=== PATIENT | male | born 1970 | race Asian ===

== ENCOUNTER 2017-03-27 13:18 | Emergency (ER) | payer MEDICAID, OTHER ==
[~2017-03-27] VITALS: Ht 152.4 cm; Wt 61.2 kg
[2017-03-27 13:30] VITALS: BP 135/86
--- NOTE | 2017-03-27 13:52 | Emergency Room Report ---
History of Present Illness General Chief Complaint: Chest Pain Source: Medical Record Present Illness HPI 46YOM BIBEMS with neck pain then chest pain after eating [employer] for chest pain Patient non-verbal a baseline, developmental delayed. History of DM on metformin Xarelto listed as med on sheet but SW not sure if still taking/former CW didnt update meds EMS rhtym strip showed sinus tach - no ischemia Not given any ASA or meds Allergies: Coded Allergies: No Known Allergies (Unverified , 03/27/17) Patient History Past Medical History: DM, other - Hypothyroid, psych Past Surgical History: unable to obtain Pertinent Family History: unable to obtain Social History: Denies: smoking, alcohol use, drug use Immunizations: UTD Reviewed Nursing Documentation: PMH: Agreed, PSxH: Agreed Nursing Documentation-PMH Hx Diabetes: Yes Review of Systems All Other Systems: limited - Non verbal at baseline, developmental delayed Physical Exam Vital Signs Date Time Temp Pulse Resp B/P (MAP) Pulse Ox O2 Delivery O2 Flow Rate FiO2 03/27/17 13:24 97.5 92 16 140/99 98 Room Air Sp02 EP Interpretation: reviewed, normal General Appearance: normal inspection, well appearing, no apparent distress, alert, GCS 15, non-toxic, other - Well appearing, sitting upright in stretcher Head: atraumatic Eyes: bilateral eye PERRL, bilateral eye EOMI ENT: normal ENT inspection, hearing grossly normal, normal voice Neck: normal inspection, full range of motion, supple, no bony tend Respiratory: normal inspection, lungs clear, normal breath sounds, no respiratory distress, no retraction, no wheezing, other - TTP to upper chest and neck, chest symmetrical Cardiovascular #1: regular rate, rhythm, no edema Gastrointestinal: normal inspection, normal bowel sounds, non tender, soft, no guarding, no hernia Genitourinary: no CVA tenderness Musculoskeletal: normal inspection, back normal, normal range of motion, Chandu' s Sign negative Neurologic: normal inspection, alert, responsive, speech normal Psychiatric: normal inspection, judgement/insight normal, mood/affect normal Skin: normal inspection, normal color, no rash Medical Decision Making Diagnostic Impression: Primary Impression: Chest pain Additional Impression: Neck pain ER Course Chest pain and neck pain after eating lunch Palpable ttp to chest wall History of DM, ?xarelto use for unknown reason VS with tachycardia, improved to HR 76 after Tylenol, pepcid ECG is nonischemic 2x trop WNL Doubt ACS, PE given well appearance, stable vitals, normal trops x2, ECG Likely indigestion, stuck food bolus given transition from neck to chest pain at outset Now pain free No ttp to chest wall on serial exam DC home Close PMD followup EKG Diagnostic Results Rate: normal Rhythm: NSR ST Segments: no acute changes ASA given to the pt in ED: No Rhythm Strip Diag. Results EP Interpretation: yes Rate: 95 Rhythm: NSR, no PVC's, no ectopy Chest X-Ray Diagnostic Results Chest X-Ray Diagnostic Results : Chest X-Ray Ordered: Yes # of Views/Limited/Complete: 1 View Indication: Chest Pain EP Interpretation: Yes Interpretation: no consolidation, no effusion, no pneumothorax, no acute cardiopulmonary disease Impression: No acute disease Electronically Signed by: Dr Judah Adhikari MD Last Vital Signs Date Time Temp Pulse Resp B/P (MAP) Pulse Ox O2 Delivery O2 Flow Rate FiO2 03/27/17 13:24 97.5 92 16 140/99 98 Room Air Status: improved Disposition: HOME, SELF-CARE JUDAH ADHIKARI M.D. Mar 27, 2017 13:52
[2017-03-27] MEDS ORDERED: SEROQUEL25 MG ORAL (14:07)
[2017-03-27] MEDS ORDERED: LEVOTHYROXINE75 MCG ORAL (14:07)
[2017-03-27] MEDS ORDERED: METFORMIN HCL500 M5 PO (14:08)
[2017-03-27 14:16] LABS: BASOPHILS % (AUTO) 1.3 % (0.0-2.0); EOSINOPHILS % (AUTO) 3.6 % (0.0-3.0); LYMPHOCYTES % (AUTO) 35.7 % (20.0-45.0); MEAN CORPUSCULAR HEMOGLOBIN 31.3 PG (27.0-31.0); MEAN CORPUSCULAR HGB CONC 33.2 G/DL (32.0-36.0); MEAN CORPUSCULAR VOLUME 94 FL (80-99); MEAN PLATELET VOLUME 5.1 FL (6.5-10.1); MONOCYTES % (AUTO) 5.6 % (1.0-10.0); NEUTROPHILS % (AUTO) 53.8 % (45.0-75.0); PLATELET COUNT 187 K/UL (150-450); RED BLOOD COUNT 4.87 M/UL (4.70-6.10); RED CELL DISTRIBUTION WIDTH 11.4 % (11.6-14.8)
[2017-03-27 14:34] LABS: APPEARANCE,URINE CLEAR; KETONES,URINE NEGATIVE (NEGATIVE); LEUKOCYTE ESTERASE ,URINE NEGATIVE (NEGATIVE); NITRITE,URINE NEGATIVE (NEGATIVE); PH,URINE 5 (4.5-8.0); PROTEIN,URINE NEGATIVE (NEGATIVE); UROBILINOGEN,URINE NORMAL MG/DL (0.0-1.0)
[2017-03-27 15:02] LABS: ANION GAP 8 mmol/L (5-15); CALCIUM 9.7 MG/DL (8.5-10.1); CARBON DIOXIDE 28 MMOL/L (21-32); CHLORIDE 104 MMOL/L (98-107); CREATININE 0.9 MG/DL (0.55-1.30); GLOMERULAR FILTRATION RATE > 60 mL/min (>60); POTASSIUM 3.9 MMOL/L (3.5-5.1); SODIUM 140 MMOL/L (136-145)
--- NOTE | 2017-03-27 15:03 | Diagnostic Imaging Report ---
Indication: PAIN Technique: One view of the chest Comparison: none Findings: Lungs and pleural spaces are clear. Heart size is normal. The left hemidiaphragm is elevated Impression: No acute process
[2017-03-27 15:13] LABS: ALANINE AMINOTRANSFERASE 44 U/L (12-78); ALBUMIN/GLOBULIN RATIO 1.1 (1.0-2.7); ASPARTATE AMINO TRANSFERASE 29 U/L (15-37); TOTAL PROTEIN 8.2 G/DL (6.4-8.2)
[2017-03-27 16:30] VITALS: BP 128/87
[2017-03-27 17:13] VITALS: BP 128/87
--- NOTE | 2017-03-31 14:56 | Cardiology Report ---
APPROVED REPORT EKG Measurement Heart [id number] Normal sinus rhythm Normal ECG
== END 2017-03-27 17:42 | disposition home or self-care (01) ==
LOC: EDBD 13:18 → EDSEX 13:18 → EMR 15:50
DX: R07.9 Chest pain, unspecified (principal); E11.9 Type 2 diabetes mellitus without complications; M54.2 Cervicalgia; Z79.84 Long term (current) use of oral hypoglycemic drugs; E03.9 Hypothyroidism, unspecified
CPT/HCPCS: 36415; 71010; 80053; 81003; 83880; 84484; 85025; 93005; 96374; 99284; S0028

== ENCOUNTER 2019-06-07 10:25 | Inpatient (IN) | payer MEDICAID ==
[~2019-06-07] VITALS: Ht 160 cm; Wt 52.5 kg
--- NOTE | 2019-06-07 10:20 | NUR ---
ED Nurse Note: pt arrived with ra 29 d/t seizure and possible chest pain from [employer]. pt is nonverbal. shows NA Addendum: 06/07/19 at 1021 by PDELEUNIQUE ED Nurse Note: pt arrived with ra 29 d/t seizure and possible chest pain from [employer]. pt is nonverbal. shows NAD
[2019-06-07 10:21] VITALS: BP 120/73
--- NOTE | 2019-06-07 10:23 | NUR ---
ED Nurse Note: no witness KO, per ems pt was found shaking in bed. pt was pointing at chest at point of ems arrival.
[~2019-06-07 10:25] MED LIST: LEVOTHYROXINE75 MCG ORAL; METFORMIN HCL500 M5 PO; SEROQUEL25 MG ORAL
[2019-06-07] MEDS ORDERED: Mylanta II UD 30ml ORAL ONE (10:30)
--- NOTE | 2019-06-07 10:32 | NUR ---
ED Nurse Note: iv line established; patent and intact. pt blood specimen sent to lab
[2019-06-07 10:45] LABS: BASOPHILS % (AUTO) 0.8 % (0.0-2.0); EOSINOPHILS % (AUTO) 0.9 % (0.0-3.0); HEMATOCRIT 44.7 % (42.0-52.0); HEMOGLOBIN 15.7 G/DL (14.2-18.0); LYMPHOCYTES % (AUTO) 12.5 % (20.0-45.0); MEAN CORPUSCULAR VOLUME 92 FL (80-99); MONOCYTES % (AUTO) 5.5 % (1.0-10.0); NEUTROPHILS % (AUTO) 80.5 % (45.0-75.0); PLATELET COUNT 191 K/UL (150-450); RED BLOOD COUNT 4.88 M/UL (4.70-6.10); RED CELL DISTRIBUTION WIDTH 11.6 % (11.6-14.8); WHITE BLOOD COUNT 6.5 K/UL (4.8-10.8)
--- NOTE | 2019-06-07 10:50 | NUR ---
ED Nurse Note: Denita, care management coordinator at bedside.
[2019-06-07 11:01] LABS: ANION GAP 11 mmol/L (5-15); BLOOD UREA NITROGEN 24 mg/dL (7-18); CALCIUM 8.5 MG/DL (8.5-10.1); CARBON DIOXIDE 23 MMOL/L (21-32); CHLORIDE 103 MMOL/L (98-107); SODIUM 137 MMOL/L (136-145)
[2019-06-07 11:12] LABS: ALANINE AMINOTRANSFERASE 20 U/L (12-78); ALBUMIN 3.8 G/DL (3.4-5.0); ALBUMIN/GLOBULIN RATIO 0.9 (1.0-2.7); ALKALINE PHOSPHATASE 97 U/L (46-116); ASPARTATE AMINO TRANSFERASE 19 U/L (15-37); BILIRUBIN,TOTAL 0.5 MG/DL (0.2-1.0)
[2019-06-07 12:00] VITALS: BP 121/76
--- NOTE | 2019-06-07 12:31 | NUR ---
ED Nurse Note: recetable inserted per ermd order with CRN
--- NOTE | 2019-06-07 12:40 | NUR ---
ED Nurse Note: sister Essence at bedside
[2019-06-07] MEDS ORDERED: Omnipaque-300 100ml vial INJ PRN (13:00)
--- NOTE | 2019-06-07 13:12 | NUR ---
ED Nurse Note: Pt taken to CT
--- NOTE | 2019-06-07 13:21 | Diagnostic Imaging Report ---
Indication: Chest pain Technique: One view of the chest Comparison: 03/27/2017 Findings: Inspiration is suboptimal. There is questionable hazy parenchymal opacity an questionable slight perihilar interstitial congestion. The pleural spaces are clear. The heart is upper limits normal in size. The stomach is markedly distended with gas Impression: Marked gaseous distention of the stomach Hypoventilatory exam Mild interstitial congestion and hazy parenchymal opacity, may be an artifact of low lung volumes but could also indicate mild interstitial and airspace edema
--- NOTE | 2019-06-07 13:28 | NUR ---
ED Nurse Note: FAMILY MEMBER AT BEDSIDE.
--- NOTE | 2019-06-07 13:28 | NUR ---
ED Nurse Note: PT BACK FROM CT
--- NOTE | 2019-06-07 14:06 | Emergency Room Report ---
History of Present Illness General Chief Complaint: Chest Pain Source: Patient, Medical Record, EMS Present Illness HPI 48-year-old male presents with vague complaints of chest pain, abdominal pain, started a few hours prior to arrival, he is not able to verbalize what exactly is going on he has a history of developmental delay, unknown aggravating relieving factors unknown severity unknown radiation he points to his chest as well as his abdomen patient presents for evaluation Allergies: Coded Allergies: No Known Allergies (Unverified , 03/27/17) Patient History Past Medical History: see triage record Reviewed Nursing Documentation: PMH: Agreed; PSxH: Agreed Nursing Documentation-PMH Past Medical History: No History, Except For Hx Diabetes: Yes History Of Psychiatric Problem: Yes - mentally delayed Review of Systems All Other Systems: negative except mentioned in HPI Physical Exam Vital Signs Date Time Temp Pulse Resp B/P (MAP) Pulse Ox O2 Delivery O2 Flow Rate FiO2 06/07/19 10:13 98.2 126 18 120/73 (89) 100 Room Air Sp02 EP Interpretation: reviewed, normal General Appearance: well appearing, no apparent distress, alert Head: normocephalic, atraumatic Eyes: bilateral eye PERRL, bilateral eye EOMI ENT: uvula midline, dry mucus membranes Neck: supple, thyroid normal, supple/symm/no masses Respiratory: lungs clear, no respiratory distress, no retraction, no accessory muscle use Cardiovascular #1: normal peripheral pulses, no edema, no gallop, no murmur, tachycardia Gastrointestinal: distended, tenderness - diffuse tenderness Musculoskeletal: normal inspection Neurologic: alert, responsive Psychiatric: mood/affect normal Skin: no rash, warm/dry Procedures Critical Care Time Critical Care Time Given the critical condition in which the patient arrived, the patient was immediately assessed by myself and the nurse, and cardiac monitoring initiated due to the potential for rapid decompensation of the patient's clinical condition. During the course of the patient's stay, I spent a considerable amount of time at the bedside performing serial re-evaluations of the patient's hemodynamic and clinical status because of the recognized potential threat to life or limb in this condition. I then had a chance to review not only all of the available current laboratory and radiographic studies obtained today, but I also reviewed old records available to me at the time. Additionally, any ancillary information available including developer programmer analyst records were reviewed. Sequential vital signs were obtained. Critical Care time of 33 minutes was performed exclusive of billable procedures. Required resuscitation with 3 L, decompression with Sanches additionally patient coordination with general surgeon as well as inpatient DrLv Medical Decision Making Diagnostic Impression: Primary Impression: Chest pain Qualified Codes: R07.9 - Chest pain, unspecified Additional Impressions: SBO (small bowel obstruction) Inguinal hernia Qualified Codes: K40.30 - Unilateral inguinal hernia, with obstruction, without gangrene, not specified as recurrent ER Course 48-year-old male presents with vague complaints of chest pain, tachycardia, differential diagnosis includes abdominal pain, ACS, pneumonia, pneumothorax Chest x-ray negative, labs negative will admit patient for persistent tachycardia Patient also found to have an SBO on CT, Sanches placed, general surgery consulted We will admit patient to Dr. Kevin Velazco Laboratory Tests Test 06/07/19 10:30 White Blood Count 6.5 K/UL (4.8-10.8) Red Blood Count 4.88 M/UL (4.70-6.10) Hemoglobin 15.7 G/DL (14.2-18.0) Hematocrit 44.7 % (42.0-52.0) Mean Corpuscular Volume 92 FL (80-99) Mean Corpuscular Hemoglobin 32.2 PG (27.0-31.0) H Mean Corpuscular Hemoglobin Concent 35.1 G/DL (32.0-36.0) Red Cell Distribution Width 11.6 % (11.6-14.8) Platelet Count 191 K/UL (150-450) Mean Platelet Volume 4.9 FL (6.5-10.1) L Neutrophils (%) (Auto) 80.5 % (45.0-75.0) H Lymphocytes (%) (Auto) 12.5 % (20.0-45.0) L Monocytes (%) (Auto) 5.5 % (1.0-10.0) Eosinophils (%) (Auto) 0.9 % (0.0-3.0) Basophils (%) (Auto) 0.8 % (0.0-2.0) Sodium Level 137 MMOL/L (136-145) Potassium Level 4.0 MMOL/L (3.5-5.1) Chloride Level 103 MMOL/L (98-107) Carbon Dioxide Level 23 MMOL/L (21-32) Anion Gap 11 mmol/L (5-15) Blood Urea Nitrogen 24 mg/dL (7-18) H Creatinine 1.0 MG/DL (0.55-1.30) Estimate Glomerular Filtration Rate > 60 mL/min (>60) Glucose Level 211 MG/DL (74-106) H Calcium Level 8.5 MG/DL (8.5-10.1) Total Bilirubin 0.5 MG/DL (0.2-1.0) Aspartate Amino Transferase (AST) 19 U/L (15-37) Alanine Aminotransferase (ALT) 20 U/L (12-78) Alkaline Phosphatase 97 U/L (46-116) Troponin I 0.000 ng/mL (0.000-0.056) Pro-B-Type Natriuretic Peptide 96 pg/mL (0-125) Total Protein 8.0 G/DL (6.4-8.2) Albumin 3.8 G/DL (3.4-5.0) Globulin 4.2 g/dL Albumin/Globulin Ratio 0.9 (1.0-2.7) L Lipase 131 U/L (73-393) EKG Diagnostic Results EKG Time: 10:26 EP Interpretation: Sinus tachycardia, rate 123, QTc 440, no acute ST elevations , normal axis Rhythm Strip Diag. Results Rhythm Strip Time: 14:04 EP Interpretation: yes Rate: 114 Rhythm: other - Sinus Tachycardia Chest X-Ray Diagnostic Results Chest X-Ray Diagnostic Results : Chest X-Ray Ordered: Yes # of Views/Limited/Complete: 1 View EP Interpretation: Yes Interpretation: no consolidation, no effusion, no pneumothorax, no acute cardiopulmonary disease Impression: No acute disease Electronically Signed by: Jameel Hwang MD CT/MRI/US Diagnostic Results CT/MRI/US Diagnostic Results : Impression Procedure: CT Abdomen Pelvis w/Contrast Clinical Indication: Abdominal pain Technique: No oral contrast utilized, per emergency room physician request IV administration nonionic contrast. Venous phase spiral acquisition obtained through the abdomen and pelvis. Multiplanar reconstructions were generated. Total dose length product 752 mGycm. CTDIvol(s) 11 mGy. Dose reduction achieved using automated exposure control Comparison: None Findings: Lack of enteric contrast limits assessment of the GI tract. There is an indirect right inguinal hernia which contains a single loop of small bowel, probably distal ileum. Most of the small bowel is dilated and fluid-filled except for right lower quadrant ileum which is most likely small bowel distal to the hernia. No small bowel wall thickening or pneumatosis. The appendix is normal. There is no evidence of colonic diverticulosis or diverticulitis. There is a rectal tube in place. No free or loculated intraperitoneal gas or fluid is evident. Stomach is distended with ingested material and gas. The duodenum is grossly unremarkable. The gallbladder is nondistended. There, pancreas, spleen, adrenals, kidneys are unremarkable. No retroperitoneal or mesenteric mass or adenopathy. The bladder is markedly distended. No renal or ureteral calculi, hydronephrosis, or hydroureter. The included lung bases are somewhat obscured by motion artifact, grossly unremarkable. The bones are unremarkable. Impression: Indirect right inguinal hernia containing a loop of distal ileum, resulting in small bowel obstruction Rectal tube in place Distended bladder Critical value findings phoned to Dr. Waters in the emergency room at the time of interpretation The CT scanner at [facility] is accredited by the [employer] and the scans are performed using protocols designed to limit radiation exposure to as low as reasonably achievable to attain images of sufficient resolution adequate for diagnostic evaluation. Dictated By: Julius Hooks MD Electronically Signed By: Julius Hooks MD Signed Date/Time 06/07/19 1446 CC: Jameel Hwang MD Last Vital Signs Date Time Temp Pulse Resp B/P (MAP) Pulse Ox O2 Delivery O2 Flow Rate FiO2 06/07/19 10:21 98.2 126 18 120/73 100 Room Air Disposition: ADMITTED INPATIENT Condition: Serious Referrals: [facility],REFERRING (PCP) Jameel Hwang MD Jun 07, 2019 14:06
[2019-06-07 14:44] VITALS: BP 125/69
--- NOTE | 2019-06-07 14:51 | Diagnostic Imaging Report ---
Clinical Indication: Abdominal pain Technique: No oral contrast utilized, per emergency room physician request IV administration nonionic contrast. Venous phase spiral acquisition obtained through the abdomen and pelvis. Multiplanar reconstructions were generated. Total dose length product 752 mGycm. CTDIvol(s) 11 mGy. Dose reduction achieved using automated exposure control Comparison: None Findings: Lack of enteric contrast limits assessment of the GI tract. There is an indirect right inguinal hernia which contains a single loop of small bowel, probably distal ileum. Most of the small bowel is dilated and fluid-filled except for right lower quadrant ileum which is most likely small bowel distal to the hernia. No small bowel wall thickening or pneumatosis. The appendix is normal. There is no evidence of colonic diverticulosis or diverticulitis. There is a rectal tube in place. No free or loculated intraperitoneal gas or fluid is evident. Stomach is distended with ingested material and gas. The duodenum is grossly unremarkable. The gallbladder is nondistended. There, pancreas, spleen, adrenals, kidneys are unremarkable. No retroperitoneal or mesenteric mass or adenopathy. The bladder is markedly distended. No renal or ureteral calculi, hydronephrosis, or hydroureter. The included lung bases are somewhat obscured by motion artifact, grossly unremarkable. The bones are unremarkable. Impression: Indirect right inguinal hernia containing a loop of distal ileum, resulting in small bowel obstruction Rectal tube in place Distended bladder Critical value findings phoned to Dr. Waters in the emergency room at the time of interpretation The CT scanner at [facility] is accredited by the [employer] and the scans are performed using protocols designed to limit radiation exposure to as low as reasonably achievable to attain images of sufficient resolution adequate for diagnostic evaluation.
[2019-06-07 15:22] LABS: APPEARANCE,URINE CLEAR; BILIRUBIN, URINE NEGATIVE (NEGATIVE); COLOR,URINE PALE YELLOW; GLUCOSE, URINE (UA) NEGATIVE (NEGATIVE); KETONES,URINE NEGATIVE (NEGATIVE); LEUKOCYTE ESTERASE ,URINE NEGATIVE (NEGATIVE); NITRITE,URINE NEGATIVE (NEGATIVE); PH,URINE 5 (4.5-8.0); PROTEIN,URINE NEGATIVE (NEGATIVE); UROBILINOGEN,URINE NORMAL MG/DL (0.0-1.0)
--- NOTE | 2019-06-07 15:23 | NUR ---
ED Nurse Note: ENRIQUEZ CATH INSERTED PER ERMD ORDER; 900ML OUTPUT
--- NOTE | 2019-06-07 16:07 | NUR ---
ED Nurse Note: dr. braden at bedside
[2019-06-07 16:44] VITALS: BP 122/78
--- NOTE | 2019-06-07 16:50 | Consultation ---
History of Present Illness General Date patient seen: Jun 07, 2019 Reason for Hospitalization: Chest Pain Present Illness HPI 48-year-old male with multiple medical comorbidities and developmental delay who presents with abdominal pain which started a few hours prior to arrival. he is not able to verbalize what exactly is going on he has a history of developmental delay, unknown aggravating relieving factors unknown severity unknown radiation he points to his chest as well as his abdomen patient presents for evaluation. 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 States that noted abdominal distention this afternoon and he was complaining of discomfort. came in for evaluation. noted to have incarcerated right inguinal hernia that was reduced by ED physician. surgery called to evaluate. mother states known right inguinal hernia was planned for repair 4 years ago. unfortunately changes in insurance and was not able to follow through with repair. no n/v/f/c diarrhea otherwise well. urine retention with full bladder. ct noted Allergies: Coded Allergies: No Known Allergies (Unverified , 03/27/17) Medication History Scheduled Levothyroxine Sodium* (Levothyroxine Sodium*), 75 MCG ORAL DAILY, (Reported) Metformin HCl (Metformin HCl ER), 500 MG PO BID, (Reported) Quetiapine Fumarate* (Seroquel*), 25 MG ORAL TWICE A DAY, (Reported) Patient History Limited by: medical condition History Provided By: Patient, Family Member, Medical Record, PMD Healthcare decision maker Resuscitation status Advanced Directive on File Past Medical/Surgical History Past Medical/Surgical History: (1) Inguinal hernia (2) SBO (small bowel obstruction) (3) Chest pain Review of Systems Review of Symptoms General ROS: no weight loss or fever Psychological ROS: no depression or mood changes, no memory loss Ophthalmic ROS: no visual changes or eye irritation ENT ROS: no nasal congestion, hearing loss, dizziness Allergy and Immunology ROS: no allergic symptoms or urticaria Hematological and Lymphatic ROS: no swollen glands, unusual bleeding or bruising Endocrine ROS: no polyuria, polydipsia, weight changes, temperature intolerance Respiratory ROS: no cough, shortness of breath, or wheezing Cardiovascular ROS: no chest pain or dyspnea on exertion Gastrointestinal ROS: denies abdominal pain, bright red blood in stool. Musculoskeletal ROS: no myalgias or arthralgias Neurological ROS: no TIA or stroke symptoms Dermatological ROS: no new or changing skin lesions, rashes or pruritis limited given developmental delay Physical Exam Physical Exam General appearance: alert, cooperative, no distress, appears stated age Head: Normocephalic, without obvious abnormality, atraumatic Eyes: conjunctivae/corneas clear. PERRL, EOM's intact. Fundi benign Throat: Lips, mucosa, and tongue normal. Teeth and gums normal Neck: supple, symmetrical, trachea midline, no adenopathy, thyroid: not enlarged, symmetric, no tenderness/mass/nodules, no carotid bruit and no JVD Lungs: clear to auscultation bilaterally Heart: regular rate and rhythm, S1, S2 normal, no murmur, click, rub or gallop Abdomen: soft, non-tender. Bowel sounds decreased. distended. <1cm small umbilical hernia reducible. right inguinal hernia reduced Extremities: extremities normal, atraumatic, no cyanosis or edema Pulses: 2+ and symmetric Skin: Skin color, texture, turgor normal. No rashes or lesions Neurologic: Grossly normal Last 24 Hour Vital Signs Date Time Temp Pulse Resp B/P (MAP) Pulse Ox O2 Delivery O2 Flow Rate FiO2 06/07/19 14:44 98.4 112 20 125/69 98 Room Air 06/07/19 12:00 98.2 117 27 121/76 100 Room Air 06/07/19 10:21 98.2 126 18 120/73 100 Room Air 06/07/19 10:21 126 18 Room Air 06/07/19 10:13 98.2 126 18 120/73 (89) 100 Room Air Laboratory Tests Test 06/07/19 10:30 06/07/19 14:43 White Blood Count 6.5 K/UL (4.8-10.8) Red Blood Count 4.88 M/UL (4.70-6.10) Hemoglobin 15.7 G/DL (14.2-18.0) Hematocrit 44.7 % (42.0-52.0) Mean Corpuscular Volume 92 FL (80-99) Mean Corpuscular Hemoglobin 32.2 PG (27.0-31.0) H Mean Corpuscular Hemoglobin Concent 35.1 G/DL (32.0-36.0) Red Cell Distribution Width 11.6 % (11.6-14.8) Platelet Count 191 K/UL (150-450) Mean Platelet Volume 4.9 FL (6.5-10.1) L Neutrophils (%) (Auto) 80.5 % (45.0-75.0) H Lymphocytes (%) (Auto) 12.5 % (20.0-45.0) L Monocytes (%) (Auto) 5.5 % (1.0-10.0) Eosinophils (%) (Auto) 0.9 % (0.0-3.0) Basophils (%) (Auto) 0.8 % (0.0-2.0) Sodium Level 137 MMOL/L (136-145) Potassium Level 4.0 MMOL/L (3.5-5.1) Chloride Level 103 MMOL/L (98-107) Carbon Dioxide Level 23 MMOL/L (21-32) Anion Gap 11 mmol/L (5-15) Blood Urea Nitrogen 24 mg/dL (7-18) H Creatinine 1.0 MG/DL (0.55-1.30) Estimat Glomerular Filtration Rate > 60 mL/min (>60) Glucose Level 211 MG/DL (74-106) H Calcium Level 8.5 MG/DL (8.5-10.1) Total Bilirubin 0.5 MG/DL (0.2-1.0) Aspartate Amino Transf (AST/SGOT) 19 U/L (15-37) Alanine Aminotransferase (ALT/SGPT) 20 U/L (12-78) Alkaline Phosphatase 97 U/L (46-116) Troponin I 0.000 ng/mL (0.000-0.056) Pro-B-Type Natriuretic Peptide 96 pg/mL (0-125) Total Protein 8.0 G/DL (6.4-8.2) Albumin 3.8 G/DL (3.4-5.0) Globulin 4.2 g/dL Albumin/Globulin Ratio 0.9 (1.0-2.7) L Lipase 131 U/L (73-393) Urine Color Pale yellow Urine Appearance Clear Urine pH 5 (4.5-8.0) Urine Specific [place] 1.005 (1.005-1.035) Urine Protein Negative (NEGATIVE) Urine Glucose (UA) Negative (NEGATIVE) Urine Ketones Negative (NEGATIVE) Urine Blood Negative (NEGATIVE) Urine Nitrite Negative (NEGATIVE) Urine Bilirubin Negative (NEGATIVE) Urine Urobilinogen Normal MG/DL (0.0-1.0) Urine Leukocyte Esterase Negative (NEGATIVE) Height (Feet): 5 Height (Inches): 3.00 Weight (Pounds): 165 Medications Current Medications Medications (Trade) Dose Ordered Sig/[place] Route PRN Reason Start Time Stop Time Status Last Admin Dose Admin Iohexol (OMNIPAQUE-300 100ml) 100 ml NOW PRN INJ Radiology Procedure 06/07/19 13:00 06/09/19 13:00 Assessment/Plan Problem List: (1) Inguinal hernia ICD Codes: K40.90 - Unilateral inguinal hernia, without obstruction or gangrene , not specified as recurrent SNOMED: 461340668 Qualifiers: Qualified Codes: K40.30 - Unilateral inguinal hernia, with obstruction, without gangrene, not specified as recurrent (2) SBO (small bowel obstruction) Assessment & Plan: Findings: Lack of enteric contrast limits assessment of the GI tract. There is an indirect right inguinal hernia which contains a single loop of small bowel, probably distal ileum. Most of the small bowel is dilated and fluid-filled except for right lower quadrant ileum which is most likely small bowel distal to the hernia. No small bowel wall thickening or pneumatosis. The appendix is normal. There is no evidence of colonic diverticulosis or diverticulitis. There is a rectal tube in place. No free or loculated intraperitoneal gas or fluid is evident. Stomach is distended with ingested material and gas. The duodenum is grossly unremarkable. The gallbladder is nondistended. There, pancreas, spleen, adrenals, kidneys are unremarkable. No retroperitoneal or mesenteric mass or adenopathy. The bladder is markedly distended. No renal or ureteral calculi, hydronephrosis, or hydroureter. The included lung bases are somewhat obscured by motion artifact, grossly unremarkable. The bones are unremarkable. Impression: Indirect right inguinal hernia containing a loop of distal ileum, resulting in small bowel obstruction Rectal tube in place Distended bladder ICD Codes: K56.609 - Unspecified intestinal obstruction, unspecified as to partial versus complete obstruction SNOMED: 138202998 (3) Chest pain ICD Codes: R07.9 - Chest pain, unspecified SNOMED: 86730747 Qualifiers: Qualified Codes: R07.9 - Chest pain, unspecified (4) Incarcerated right inguinal hernia Assessment & Plan: 48 year old male with incarcerated right inguinal hernia. known history of RIH. plan for prior repair but did not. now incarcerated causing sbo. was reduced in ED by physician. no n/v/f/c diarrhea abd soft, distended, non tender, decreased bs labs noted imaging reviewed admit for observation npo iv fluids am KUB serial exams ? if bowel compromise as do not know how long incarcerated for and pt with developmental delay will need to monitor for bowel ischemia, perforation, recurrence will follow with recs thank you ICD Codes: K40.30 - Unilateral inguinal hernia, with obstruction, without gangrene, not specified as recurrent SNOMED: 867260894 Alan Freedman Jun 07, 2019 16:50
[2019-06-07] MEDS ORDERED: Morphine Sulfate 2mg/ml Inj(IV/IM USE ONLY) IVP PRN (17:00)
[2019-06-07] MEDS ORDERED: Mylanta II UD 30ml ORAL PRN (17:00)
[2019-06-07] MEDS ORDERED: DiphenhydrAMINE 25mg Tab ORAL PRN (17:00)
[2019-06-07] MEDS ORDERED: LORazepam Inj 2mg/ml 1ml IV PRN (17:00)
--- NOTE | 2019-06-07 17:04 | NUR ---
ED Nurse Note: TELEPHONE REPORT GIVEN TREVOR BYRNE FOR CONTINUITY OF CARE
[2019-06-07] MEDS ORDERED: PANTOPRAZOLE SO20 MG ORAL (17:24)
[2019-06-07] MEDS ORDERED: VITAMIN D32000 UNI3 PO (17:28)
[2019-06-07] MEDS ORDERED: SEROQUEL50 MG ORAL (17:28)
[2019-06-07] MEDS ORDERED: BISACODYL5 MG ORAL (17:28)
--- NOTE | 2019-06-07 17:28 | NUR ---
TRANSFER TO FLOOR: Patient transferred to TELE as ordered, per ERMD . Report given to TREVOR BYRNE Belongings and medications given tO JOAN,. Family and or S/O informed of transfer.
--- NOTE | 2019-06-07 17:35 | NUR ---
NURSE NOTES: Received patient from Cory Vogt. Patient being admitted from ED transported via [facility]. Patient is awake, nonverbal but able to follow very simple commands. Sister and urgent care physician at bedside. Abdomen noted to be distended with hyperactive bowel sounds. denies pain. Dr. Freedman seen in Ed. Patient on clear liquid diet. Flexi seal liquid brown stool will collect stool for CDIFF. Sanches catheter with clear yellow urine. Patient made comfortable. fall precautions in place. will follow. l
[2019-06-07] MEDS: D5 1/2NS w/KCl 20mEq 1,000 ML IV SCH (18:33)
[2019-06-07 20:00] VITALS: BP 128/71
--- NOTE | 2019-06-07 20:05 | NUR ---
HAND-OFF: Report given to Cory Araujo. Plan of care endorsed.
--- NOTE | 2019-06-07 20:12 | NUR ---
NURSE NOTES: Received report from TREVOR Gomez. Patient is awake lying semi-hays's; resting comfortably. No signs of acute distress noted; denies pain at this time. Sister at bedside. AOx1; able to verbalize needs to a degree. Checked IV site, lines, and IV rate; patent and running. No erythema, bleeding, or infiltration noted. Rectal tube in place. Sanches catheter draining well to gravity. Bed at lowest position, brakes on, siderails up x3. Call light within reach. Will continue to monitor.
[2019-06-07] MEDS: NovoLOG Insulin Flexpen SUBQ SCH (21:26)
[2019-06-07] MEDS: Heparin 5000 units/ml inj SUBQ SCH (21:26)
[2019-06-08] VITALS: BP 116/72
--- NOTE | 2019-06-08 03:41 | NUR ---
NURSE NOTES: Patient is awake lying semi-hays's; resting comfortably. No signs of acute distress noted; denies pain at this time. Sanches catheter draining well to gravity.
[2019-06-08 04:00] VITALS: BP 132/85
[2019-06-08] MEDS: NovoLOG Insulin Flexpen SUBQ SCH ×4 (06:49→21:34)
[2019-06-08 07:22] LABS: BASOPHILS % (AUTO) 1.4 % (0.0-2.0); EOSINOPHILS % (AUTO) 0.2 % (0.0-3.0); HEMOGLOBIN 14.3 G/DL (14.2-18.0); LYMPHOCYTES % (AUTO) 12.9 % (20.0-45.0); MEAN CORPUSCULAR VOLUME 90 FL (80-99); MONOCYTES % (AUTO) 8.7 % (1.0-10.0); NEUTROPHILS % (AUTO) 76.9 % (45.0-75.0); PLATELET COUNT 161 K/UL (150-450); RED BLOOD COUNT 4.32 M/UL (4.70-6.10); RED CELL DISTRIBUTION WIDTH 11.5 % (11.6-14.8); WHITE BLOOD COUNT 5.3 K/UL (4.8-10.8)
[2019-06-08 07:54] LABS: ALANINE AMINOTRANSFERASE 23 U/L (12-78); ALBUMIN 3.3 G/DL (3.4-5.0); ALBUMIN/GLOBULIN RATIO 0.9 (1.0-2.7); ALKALINE PHOSPHATASE 82 U/L (46-116); AMYLASE 81 U/L (25-115); ANION GAP 8 mmol/L (5-15); ASPARTATE AMINO TRANSFERASE 22 U/L (15-37); BILIRUBIN,TOTAL 0.5 MG/DL (0.2-1.0); BLOOD UREA NITROGEN 16 mg/dL (7-18); CALCIUM 7.7 MG/DL (8.5-10.1); CARBON DIOXIDE 24 MMOL/L (21-32); CHLORIDE 108 MMOL/L (98-107); CHOLESTEROL 99 MG/DL (< 200); HDL CHOLESTEROL 36 MG/DL (40-60); POTASSIUM 4.2 MMOL/L (3.5-5.1); SODIUM 140 MMOL/L (136-145); TRIGLYCERIDES 58 MG/DL (30-150)
[2019-06-08 08:00] VITALS: BP 105/70
--- NOTE | 2019-06-08 08:09 | NUR ---
NURSE NOTES: Received patient from Cory Thibodeaux. Patient is awake in bed nods and shakes head to questions. Following simple commands, able to move all extremities. Denies pain or discomfort at this time. Rectal tube and yin catheter in place. Flexiseal still draining liquidy stool will collect and send for CDIFF. IVF infusing through Left AC peripheral IV. SisterEssence is at her bedside. Will follow.
[2019-06-08] MEDS: D5 1/2NS w/KCl 20mEq 1,000 ML IV SCH ×2 (08:46→21:29)
[2019-06-08] MEDS: Heparin 5000 units/ml inj SUBQ SCH ×2 (08:49→21:34)
--- NOTE | 2019-06-08 09:05 | NUR ---
NURSE NOTES:WOUND CARE NOTES:Pt presented on admission with two small openings lower R buttocks .Both openings are in close proximity and has puncture-like appearance. NO erythema,induration or exudate noted. Sacrum and both ischium are blanchable. Both heels and malleoli are blanchable. No evidence of skin breakdown noted. Wound prevention initiated. Moisture Barrier Paste applied to buttocks . Sacral area covered with Optifoam drsg to minimize friction and or shearing. [place] Skin BArrier applied to both heels and each heel covered with Optifoam drsgs. Both heels off-loaded with pillow. PT positioned with pillow on his side. Tx.plan: Apply Moisture Barrier Paste to buttocks with each incontinence care. Cover sacrum with Optifoam drsg. Change every 3 days and prn. Reposition at least every 2hours or as tolerated. Off-load heels with pillow.
--- NOTE | 2019-06-08 09:25 | Diagnostic Imaging Report ---
Indication: Abdominal pain Technique: Supine view of the abdomen Comparison: Client Application Support Specialist image from CT scan 06/07/2019 Findings: Dilated gas-filled small bowel loops again demonstrated, degree of distention appearing slightly increased from the previous exam. Sanches catheter and rectal tube are again demonstrated. Impression: Slightly increased gaseous distention of small bowel, likely ongoing small bowel obstruction given findings described on prior CT scan.
--- NOTE | 2019-06-08 09:55 | NUR ---
PT EVALUATION NOTE Patient seen for initial evaluation. Patient presents with generalized weakness and impaired balance which affects patient's ability to perform mobility tasks safely. Patient requires min assist for bed mobility and transfers without assistive device. Patient able to ambulate 40 ft with min/mod assist, no assistive device. Patient unsteady during ambulation requiring assist to maintain balance. Patient will benefit from skilled inpatient PT intervention to address strength, balance and safety for improved level of independence with functional mobility. [facility] once medically cleared by MD. No DME needs recommended at this time. Addendum: 06/08/19 at 1311 by LOURDES COLON PT Amended: Links added.
--- NOTE | 2019-06-08 10:55 | General Progress Note ---
Assessment/Plan Problem List: (1) SBO (small bowel obstruction) ICD Codes: K56.609 - Unspecified intestinal obstruction, unspecified as to partial versus complete obstruction SNOMED: 387583605 (2) Incarcerated right inguinal hernia ICD Codes: K40.30 - Unilateral inguinal hernia, with obstruction, without gangrene, not specified as recurrent SNOMED: 149965283 (3) Chest pain ICD Codes: R07.9 - Chest pain, unspecified SNOMED: 16205638 Qualifiers: Qualified Codes: R07.9 - Chest pain, unspecified (4) Inguinal hernia ICD Codes: K40.90 - Unilateral inguinal hernia, without obstruction or gangrene , not specified as recurrent SNOMED: 374246486 Qualifiers: Qualified Codes: K40.30 - Unilateral inguinal hernia, with obstruction, without gangrene, not specified as recurrent Assessment/Plan: ngt to suction fu surg recs npo ivf pain control Subjective Allergies: Coded Allergies: No Known Allergies (Unverified , 03/27/17) Objective Last 24 Hour Vital Signs Date Time Temp Pulse Resp B/P (MAP) Pulse Ox O2 Delivery O2 Flow Rate FiO2 06/08/19 08:00 97.7 111 18 105/70 (82) 96 06/08/19 04:00 99.5 111 20 132/85 (101) 99 06/08/19 04:00 113 06/08/19 00:00 113 06/08/19 00:00 98.0 115 19 116/72 (87) 98 06/07/19 21:00 Room Air 06/07/19 20:00 119 06/07/19 20:00 97.9 117 18 128/71 (90) 97 06/07/19 19:15 100.8 06/07/19 17:45 116 06/07/19 17:30 Room Air 06/07/19 17:28 98.8 113 25 119/77 97 Room Air 06/07/19 16:44 98.9 114 24 122/78 99 Room Air 06/07/19 14:44 98.4 112 20 125/69 98 Room Air 06/07/19 12:00 98.2 117 27 121/76 100 Room Air Intake and Output 06/07/19 06/08/19 19:00 07:00 Intake Total 3034 ml 900 ml Output Total 2300 ml 650 ml Balance 734 ml 250 ml Intake IV Total 3034 ml 900 ml Output Urine Total 1800 ml 650 ml Stool Total 500 ml # Voids 2 # Bowel Movements 3 Laboratory Tests 06/07/19 14:43: Urine Color Pale yellow, Urine Appearance Clear, Urine pH 5, Urine Specific [place] 1.005, Urine Protein Negative, Urine Glucose (UA) Negative, Urine Ketones Negative, Urine Blood Negative, Urine Nitrite Negative, Urine Bilirubin Negative, Urine Urobilinogen Normal, Urine Leukocyte Esterase Negative 06/08/19 05:53: White Blood Count 5.3, Red Blood Count 4.32L, Hemoglobin 14.3, Hematocrit 39.0L , Mean Corpuscular Volume 90, Mean Corpuscular Hemoglobin 33.1H, Mean Corpuscular Hemoglobin Concent 36.6H, Red Cell Distribution Width 11.5L, Platelet Count 161, Mean Platelet Volume 4.4L, Neutrophils (%) (Auto) 76.9H, Lymphocytes (%) (Auto) 12.9L, Monocytes (%) (Auto) 8.7, Eosinophils (%) (Auto) 0.2, Basophils (%) (Auto) 1.4, Erythrocyte Sedimentation Rate 29H, Prothrombin Time 10.7, Prothromb Time International Ratio 1.0, Activated Partial Thromboplast Time 29, Sodium Level 140, Potassium Level 4.2, Chloride Level 108H , Carbon Dioxide Level 24, Anion Gap 8, Blood Urea Nitrogen 16, Creatinine 1.0, Estimat Glomerular Filtration Rate > 60, Glucose Level 165H, Hemoglobin A1c 6.6H , Lactic Acid Level 1.40, Calcium Level 7.7L, Total Bilirubin 0.5, Aspartate Amino Transf (AST/SGOT) 22, Alanine Aminotransferase (ALT/SGPT) 23, Alkaline Phosphatase 82, C-Reactive Protein, Quantitative 6.2H, Pro-B-Type Natriuretic Peptide 119, Total Protein 7.1, Albumin 3.3L, Globulin 3.8, Albumin/Globulin Ratio 0.9L, Triglycerides Level 58, Cholesterol Level 99, LDL Cholesterol 51, HDL Cholesterol 36L, Cholesterol/HDL Ratio 2.8L, Amylase Level 81, Thyroid Stimulating Hormone (TSH) 0.444 Height (Feet): 5 Height (Inches): 3.00 Weight (Pounds): 115 General Appearance: alert EENT: normal ENT inspection Neck: supple Cardiovascular: normal rate Respiratory/Chest: decreased breath sounds Abdomen: hypoactive bowel sounds, distended, tender Extremities: non-tender Kurt Krishnamurthy MD Jun 08, 2019 10:55
[2019-06-08 12:00] VITALS: BP_SYST 110; BP_SYST 119; BP_DIAS 69; BP_DIAS 81
--- NOTE | 2019-06-08 12:07 | NUR ---
CASE MANAGEMENT:REVIEW 48 YR OLD MALE BIBA FROM HOME CC: CHEST PAIN SI: CHEST PAIN. SBO. INGUINAL HERNIA 98.2 126 18 120/73 100% ON RA BUN+24 IS: 1L NS BOLUS X3 IV PEPCID CT ABD/PELVIS CXR : TO TELEMETRY INTERQUAL CRITERIA MET IS: NPO NG TUBE
--- NOTE | 2019-06-08 12:12 | Diagnostic Imaging Report ---
Indication: Post nasogastric tube placement Technique: Supine view of the upper abdomen Comparison: 4 hours earlier Findings: Interim placement of a nasogastric tube, tip coiled in the gastric fundus, in satisfactory position. There is suggestion of slightly decreased gaseous distention of small bowel since the prior exam Impression: Satisfactory nasogastric tube placement Slightly improved small bowel distention, over 4 hours
--- NOTE | 2019-06-08 13:41 | Cardiac Electrophysiology PN ---
Subjective Subjective [id number] Objective Last 24 Hour Vital Signs Date Time Temp Pulse Resp B/P (MAP) Pulse Ox O2 Delivery O2 Flow Rate FiO2 06/08/19 12:00 113 06/08/19 12:00 98.0 120 20 110/81 (91) 97 06/08/19 09:00 Room Air 06/08/19 08:00 97.7 111 18 105/70 (82) 96 06/08/19 08:00 110 06/08/19 04:00 99.5 111 20 132/85 (101) 99 06/08/19 04:00 113 06/08/19 00:00 113 06/08/19 00:00 98.0 115 19 116/72 (87) 98 06/07/19 21:00 Room Air 06/07/19 20:00 119 06/07/19 20:00 97.9 117 18 128/71 (90) 97 06/07/19 19:15 100.8 06/07/19 17:45 116 06/07/19 17:30 Room Air 06/07/19 17:28 98.8 113 25 119/77 97 Room Air 06/07/19 16:44 98.9 114 24 122/78 99 Room Air 06/07/19 14:44 98.4 112 20 125/69 98 Room Air Intake and Output 06/07/19 06/08/19 19:00 07:00 Intake Total 3034 ml 900 ml Output Total 2300 ml 650 ml Balance 734 ml 250 ml Intake IV Total 3034 ml 900 ml Output Urine Total 1800 ml 650 ml Stool Total 500 ml # Voids 2 # Bowel Movements 3 Laboratory Tests Test 06/07/19 14:43 06/08/19 05:53 Urine Color Pale yellow Urine Appearance Clear Urine pH 5 (4.5-8.0) Urine Specific [place] 1.005 (1.005-1.035) Urine Protein Negative (NEGATIVE) Urine Glucose (UA) Negative (NEGATIVE) Urine Ketones Negative (NEGATIVE) Urine Blood Negative (NEGATIVE) Urine Nitrite Negative (NEGATIVE) Urine Bilirubin Negative (NEGATIVE) Urine Urobilinogen Normal MG/DL (0.0-1.0) Urine Leukocyte Esterase Negative (NEGATIVE) White Blood Count 5.3 K/UL (4.8-10.8) Red Blood Count 4.32 M/UL (4.70-6.10) L Hemoglobin 14.3 G/DL (14.2-18.0) Hematocrit 39.0 % (42.0-52.0) L Mean Corpuscular Volume 90 FL (80-99) Mean Corpuscular Hemoglobin 33.1 PG (27.0-31.0) H Mean Corpuscular Hemoglobin Concent 36.6 G/DL (32.0-36.0) H Red Cell Distribution Width 11.5 % (11.6-14.8) L Platelet Count 161 K/UL (150-450) Mean Platelet Volume 4.4 FL (6.5-10.1) L Neutrophils (%) (Auto) 76.9 % (45.0-75.0) H Lymphocytes (%) (Auto) 12.9 % (20.0-45.0) L Monocytes (%) (Auto) 8.7 % (1.0-10.0) Eosinophils (%) (Auto) 0.2 % (0.0-3.0) Basophils (%) (Auto) 1.4 % (0.0-2.0) Erythrocyte Sedimentation Rate 29 MM/HR (0-15) H Prothrombin Time 10.7 SEC (9.30-11.50) Prothromb Time International Ratio 1.0 (0.9-1.1) Activated Partial Thromboplast Time 29 SEC (23-33) Sodium Level 140 MMOL/L (136-145) Potassium Level 4.2 MMOL/L (3.5-5.1) Chloride Level 108 MMOL/L (98-107) H Carbon Dioxide Level 24 MMOL/L (21-32) Anion Gap 8 mmol/L (5-15) Blood Urea Nitrogen 16 mg/dL (7-18) Creatinine 1.0 MG/DL (0.55-1.30) Estimat Glomerular Filtration Rate > 60 mL/min (>60) Glucose Level 165 MG/DL (74-106) H Hemoglobin A1c 6.6 % (4.3-6.0) H Lactic Acid Level 1.40 mmol/L (0.4-2.0) Calcium Level 7.7 MG/DL (8.5-10.1) L Total Bilirubin 0.5 MG/DL (0.2-1.0) Aspartate Amino Transf (AST/SGOT) 22 U/L (15-37) Alanine Aminotransferase (ALT/SGPT) 23 U/L (12-78) Alkaline Phosphatase 82 U/L (46-116) C-Reactive Protein, Quantitative 6.2 mg/dL (0.00-0.90) H Pro-B-Type Natriuretic Peptide 119 pg/mL (0-125) Total Protein 7.1 G/DL (6.4-8.2) Albumin 3.3 G/DL (3.4-5.0) L Globulin 3.8 g/dL Albumin/Globulin Ratio 0.9 (1.0-2.7) L Triglycerides Level 58 MG/DL (30-150) Cholesterol Level 99 MG/DL (< 200) LDL Cholesterol 51 mg/dL (<100) HDL Cholesterol 36 MG/DL (40-60) L Cholesterol/HDL Ratio 2.8 (3.3-4.4) L Amylase Level 81 U/L (25-115) Thyroid Stimulating Hormone (TSH) 0.444 uiU/mL (0.358-3.740) Microbiology Date/Time Source Procedure Growth Status 06/07/19 16:41 Rectum Received Carlos Alberto Blanchard MD Jun 08, 2019 13:41
--- NOTE | 2019-06-08 14:45 | Surgery Progress Note ---
Surgery Progress Note Subjective Additional Comments KUB noted mother at bedside seemingly comfortable no complaints non/v/f/c Objective Last 24 Hour Vital Signs Date Time Temp Pulse Resp B/P (MAP) Pulse Ox O2 Delivery O2 Flow Rate FiO2 06/08/19 12:00 113 06/08/19 12:00 98.0 120 20 110/81 (91) 97 06/08/19 09:00 Room Air 06/08/19 08:00 97.7 111 18 105/70 (82) 96 06/08/19 08:00 110 06/08/19 04:00 99.5 111 20 132/85 (101) 99 06/08/19 04:00 113 06/08/19 00:00 113 06/08/19 00:00 98.0 115 19 116/72 (87) 98 06/07/19 21:00 Room Air 06/07/19 20:00 119 06/07/19 20:00 97.9 117 18 128/71 (90) 97 06/07/19 19:15 100.8 06/07/19 17:45 116 06/07/19 17:30 Room Air 06/07/19 17:28 98.8 113 25 119/77 97 Room Air 06/07/19 16:44 98.9 114 24 122/78 99 Room Air I&O Intake and Output 06/07/19 06/08/19 19:00 07:00 Intake Total 3034 ml 900 ml Output Total 2300 ml 650 ml Balance 734 ml 250 ml Intake IV Total 3034 ml 900 ml Output Urine Total 1800 ml 650 ml Stool Total 500 ml # Voids 2 # Bowel Movements 3 Cardiovascular: RSR Respiratory: clear Abdomen: soft, distended, non-tender, decreased bowel sounds Extremities: no edema, no tenderness, no cyanosis Laboratory Tests Test 06/08/19 05:53 White Blood Count 5.3 K/UL (4.8-10.8) Red Blood Count 4.32 M/UL (4.70-6.10) L Hemoglobin 14.3 G/DL (14.2-18.0) Hematocrit 39.0 % (42.0-52.0) L Mean Corpuscular Volume 90 FL (80-99) Mean Corpuscular Hemoglobin 33.1 PG (27.0-31.0) H Mean Corpuscular Hemoglobin Concent 36.6 G/DL (32.0-36.0) H Red Cell Distribution Width 11.5 % (11.6-14.8) L Platelet Count 161 K/UL (150-450) Mean Platelet Volume 4.4 FL (6.5-10.1) L Neutrophils (%) (Auto) 76.9 % (45.0-75.0) H Lymphocytes (%) (Auto) 12.9 % (20.0-45.0) L Monocytes (%) (Auto) 8.7 % (1.0-10.0) Eosinophils (%) (Auto) 0.2 % (0.0-3.0) Basophils (%) (Auto) 1.4 % (0.0-2.0) Erythrocyte Sedimentation Rate 29 MM/HR (0-15) H Prothrombin Time 10.7 SEC (9.30-11.50) Prothromb Time International Ratio 1.0 (0.9-1.1) Activated Partial Thromboplast Time 29 SEC (23-33) Sodium Level 140 MMOL/L (136-145) Potassium Level 4.2 MMOL/L (3.5-5.1) Chloride Level 108 MMOL/L (98-107) H Carbon Dioxide Level 24 MMOL/L (21-32) Anion Gap 8 mmol/L (5-15) Blood Urea Nitrogen 16 mg/dL (7-18) Creatinine 1.0 MG/DL (0.55-1.30) Estimat Glomerular Filtration Rate > 60 mL/min (>60) Glucose Level 165 MG/DL (74-106) H Hemoglobin A1c 6.6 % (4.3-6.0) H Lactic Acid Level 1.40 mmol/L (0.4-2.0) Calcium Level 7.7 MG/DL (8.5-10.1) L Total Bilirubin 0.5 MG/DL (0.2-1.0) Aspartate Amino Transf (AST/SGOT) 22 U/L (15-37) Alanine Aminotransferase (ALT/SGPT) 23 U/L (12-78) Alkaline Phosphatase 82 U/L (46-116) C-Reactive Protein, Quantitative 6.2 mg/dL (0.00-0.90) H Pro-B-Type Natriuretic Peptide 119 pg/mL (0-125) Total Protein 7.1 G/DL (6.4-8.2) Albumin 3.3 G/DL (3.4-5.0) L Globulin 3.8 g/dL Albumin/Globulin Ratio 0.9 (1.0-2.7) L Triglycerides Level 58 MG/DL (30-150) Cholesterol Level 99 MG/DL (< 200) LDL Cholesterol 51 mg/dL (<100) HDL Cholesterol 36 MG/DL (40-60) L Cholesterol/HDL Ratio 2.8 (3.3-4.4) L Amylase Level 81 U/L (25-115) Thyroid Stimulating Hormone (TSH) 0.444 uiU/mL (0.358-3.740) Plan Problems: (1) Inguinal hernia (2) SBO (small bowel obstruction) Assessment & Plan: Findings: Lack of enteric contrast limits assessment of the GI tract. There is an indirect right inguinal hernia which contains a single loop of small bowel, probably distal ileum. Most of the small bowel is dilated and fluid-filled except for right lower quadrant ileum which is most likely small bowel distal to the hernia. No small bowel wall thickening or pneumatosis. The appendix is normal. There is no evidence of colonic diverticulosis or diverticulitis. There is a rectal tube in place. No free or loculated intraperitoneal gas or fluid is evident. Stomach is distended with ingested material and gas. The duodenum is grossly unremarkable. The gallbladder is nondistended. There, pancreas, spleen, adrenals, kidneys are unremarkable. No retroperitoneal or mesenteric mass or adenopathy. The bladder is markedly distended. No renal or ureteral calculi, hydronephrosis, or hydroureter. The included lung bases are somewhat obscured by motion artifact, grossly unremarkable. The bones are unremarkable. Impression: Indirect right inguinal hernia containing a loop of distal ileum, resulting in small bowel obstruction Rectal tube in place Distended bladder (3) Chest pain (4) Incarcerated right inguinal hernia Assessment & Plan: 48 year old male with incarcerated right inguinal hernia. known history of RIH. plan for prior repair but did not. now incarcerated causing sbo. was reduced in ED by physician. no n/v/f/c diarrhea abd soft, distended, non tender, decreased bs labs noted imaging reviewed npo iv fluids am KUB serial exams ? if bowel compromise as do not know how long incarcerated for and pt with developmental delay will need to monitor for bowel ischemia, perforation, recurrence KUB noted from this AM Small bowel series ordered pending results NG tube placed for decompression and contrast administration will follow with recs thank you Alan Freedman Jun 08, 2019 14:45
--- NOTE | 2019-06-08 15:15 | History and Physical Report ---
DATE OF ADMISSION: 06/07/2019 DATE AND TIME SEEN: 06/08/2019 at 9 a.m. CONSULTANTS: 1. Alan Freedman M.D. 2. Kurt Krishnamurthy M.D. 3. Zacarias Santamaria M.D. CHIEF COMPLAINT: Abdominal pain, diagnosed small bowel obstruction and right inguinal hernia. BRIEF HISTORY: This is a 48-year-old male, who has history of down syndrome, lives at snf, presents to [facility] with abdominal pain and is diagnosed with small bowel obstruction and possibly caused by right inguinal hernia. Hernia was reduced. The patient was admitted to telemetry for further care. Currently, calm, in bed, no complaint. REVIEW OF SYSTEMS: Slightly confused. Sister is at bedside. PAST MEDICAL HISTORY: Diabetes and down syndrome. PAST SURGICAL HISTORY: None. ALLERGIES: Denies. MEDICATIONS: Include , heparin, Tylenol, morphine, Zofran, and lorazepam. SOCIAL HISTORY: No smoking. No alcohol. No intravenous drug abuse. FAMILY HISTORY: Noncontributory. PHYSICAL EXAMINATION: GENERAL: Calm in bed, oriented x1, in no acute distress. VITAL SIGNS: Show temperature is 97 degrees, pulse 111, respirations 18, and blood pressure 105/70. CARDIOVASCULAR: No murmur. LUNGS: Clear and distant. ABDOMEN: Bowel sounds positive. Distant, soft. No guarding. No rigidity. No rebound. EXTREMITIES: Show no cyanosis, clubbing, or edema. NEUROLOGIC: The patient is moving all extremities, slightly weak. LABORATORY AND DIAGNOSTIC DATA: Labs at this time show CBC is normal. BMP shows chloride 108, glucose 165. Albumin 3.3. INR is 1.0. Urinalysis is negative. ASSESSMENT: 1. Small bowel obstruction. 2. Right inguinal hernia. 3. Down syndrome. 4. Tachycardia. 5. Malnutrition. 6. Diabetes. PLAN: 1. Blood pressure, blood sugar, and pain control. 2. Dietary followup. 3. NPO, IV fluids. 4. GI and Surgery followup. 5. We will add Dr. Blanchard, Cardiology. Kevin Velazco D.O. DR: DANITA JOB#: [id number] CC:
--- NOTE | 2019-06-08 18:00 | NUR ---
NURSE NOTES: Patient returned from radiology after abd xray. NGT out per sister patient had pulled it while at radiology. NGT inserted back to right nare #12 wolof. awaiting KUB confirmation. will follow.
[2019-06-08 18:19] VITALS: BP 112/82
--- NOTE | 2019-06-08 18:33 | Diagnostic Imaging Report ---
Indication: Post nasogastric tube placement Technique: Supine view of the abdomen Comparison: Small bowel study performed immediately prior Findings: Interim forward transit of contrast, now seen throughout the entirety of the colon. Rectal tube is in place. There is overall decreased caliber of the small bowel. Nasogastric tube was apparently removed over the course of the previous study, has been replaced and is in good position, coiled in the gastric fundus. Impression: Satisfactory nasogastric intubation Interim forward progression of previously ingested contrast for small bowel study This agrees with the preliminary interpretation provided overnight by [facility].
--- NOTE | 2019-06-08 19:26 | NUR ---
NURSE NOTES: Received report from TREVOR Gomez. Patient is awake lying semi-hays's; resting comfortably. No signs of acute distress noted; denies pain at this time. Sister at bedside. AOx1; able to verbalize needs to a degree. Checked IV site, lines, and IV rate; patent and running. No erythema, bleeding, or infiltration noted. Rectal tube in place. Sanches catheter draining well to gravity. NG tube in place on low intermittent suction. Bed at lowest position, brakes on, siderails up x3. Call light within reach. Will continue to monitor.
--- NOTE | 2019-06-08 19:47 | NUR ---
HAND-OFF: Report given to Cory Thibodeaux. Plan of care endorsed.
[2019-06-08 20:00] VITALS: BP 133/86
--- NOTE | 2019-06-08 23:15 | Consultation ---
DATE OF CONSULTATION: 06/08/2019 CARDIOLOGY CONSULTATION CONSULTING PHYSICIAN: Carlos Alberto Blanchard M.D. REFERRING PHYSICIAN: Kevin Velazco D.O. REASON FOR CONSULTATION: Chest pain and tachycardia. HISTORY OF PRESENT ILLNESS: The patient is a 48-year-old gentleman with history of diabetes who was brought to the emergency room for chest pain and abdominal pain a few hours hours prior to the arrival. The patient is not able to verbalize exactly what happened and has a history of developmental delay. The patient has a conservator. He points to his chest and to his abdomen. The patient was brought to the emergency room for further evaluation. The patient was tachycardic with heart rate of 120s and a cardiology consultation was requested for further evaluation. It is of note that on the CT of the abdomen, the patient was found to have small bowel obstruction, and a Sanches was placed. FAMILY HISTORY: Noncontributory. SOCIAL HISTORY: Does not smoke or drink alcohol. PHYSICAL EXAMINATION: VITAL SIGNS: Show blood pressure of 120/70, pulse 120, respirations 18, and temperature 98.2. HEAD AND NECK: Showed no JVD. LUNGS: Clear. CARDIOVASCULAR: Tachycardic. S1 and S2 with no gallop. ABDOMEN: Soft . EXTREMITIES: No pitting edema. LABORATORY AND DIAGNOSTIC DATA: His labs show white count of 6.5, hemoglobin of 15.7, hematocrit of 44, and platelet count of 191,000. Sodium 137, potassium 4.0, BUN of 24, and creatinine 1.0. Troponin is negative. BNP is 96. ASSESSMENT AND PLAN: 1. Chest pain, likely due to epigastric pain due to the small bowel obstruction. Troponin is negative. EKG does not show any acute ischemic changes. 2. Tachycardia. This is sinus tachycardia with no evidence of atrial fibrillation. 3. Small bowel obstruction. Further evaluation by Dr. Freedman and Dr. Krishnamurthy. 4. inguinal hernia. Thank you very much for allowing me to participate in the care of this patient. Please do not hesitate to contact me for any questions regarding my evaluation. Carlos Alberto Blanchard M.D. DR: TAMMY JOB#: [id number] CC:
[2019-06-09] VITALS: BP 135/84
[2019-06-09 04:00] VITALS: BP 131/82
[2019-06-09] MEDS: NovoLOG Insulin Flexpen SUBQ SCH ×4 (06:03→21:33)
--- NOTE | 2019-06-09 06:46 | Diagnostic Imaging Report ---
Indication: Post nasogastric tube placement, history of suspected small bowel obstruction Technique: Supine view of the abdomen Comparison: 06/08/2019 Findings: Again demonstrated is a nasogastric tube, coiled in the gastric fundus in good position. There is evidence of interim evacuation of much of the previously present bowel contrast. A few mildly dilated small bowel loops are seen in the midabdomen bilaterally. Impression: Satisfactory nasogastric tube position Interim evacuation of much of the previously ingested contrast Mildly dilated left mid abdominal small bowel loops, dilatation presumably functional in nature given absence of obstructive pathology on recent small bowel study
[2019-06-09 06:53] LABS: BASOPHILS % (AUTO) 0.9 % (0.0-2.0); HEMOGLOBIN 12.8 G/DL (14.2-18.0); LYMPHOCYTES % (AUTO) 23.5 % (20.0-45.0); MEAN CORPUSCULAR VOLUME 92 FL (80-99); NEUTROPHILS % (AUTO) 65.6 % (45.0-75.0); PLATELET COUNT 148 K/UL (150-450); RED BLOOD COUNT 3.93 M/UL (4.70-6.10); RED CELL DISTRIBUTION WIDTH 11.6 % (11.6-14.8); WHITE BLOOD COUNT 5.3 K/UL (4.8-10.8)
[2019-06-09 07:12] LABS: ANION GAP 10 mmol/L (5-15); BLOOD UREA NITROGEN 17 mg/dL (7-18); CALCIUM 7.8 MG/DL (8.5-10.1); CARBON DIOXIDE 24 MMOL/L (21-32); CHLORIDE 112 MMOL/L (98-107); POTASSIUM 3.7 MMOL/L (3.5-5.1); SODIUM 146 MMOL/L (136-145)
--- NOTE | 2019-06-09 07:25 | NUR ---
HAND-OFF: Report given to TREVOR Mcclain. Patient is awake lying semi-hays's; resting comfortably. NG tube reinserted. Endorsed to oncoming shift RN regarding abdominal x-ray results; verbalized understanding.
[2019-06-09 08:00] VITALS: BP 112/74
--- NOTE | 2019-06-09 08:52 | NUR ---
CASE MANAGEMENT:REVIEW 06/09/19 SI: INCARCERATED RT INGUINAL HERNIA W/SBO 98.1 76 22 112/74 96% ON RA PLT-148 CA-7.8 IS: IV PEPCID Q12 SS INSULIN HEPARIN SQ Q12 IVF@75/HR : TELEMETRY STATUS DCP: FROM HOME PLAN: NGT TO LOW INTERMITTENT SUCTION
[2019-06-09] MEDS: D5 1/2NS w/KCl 20mEq 1,000 ML IV SCH ×2 (09:43→23:28)
[2019-06-09] MEDS: Heparin 5000 units/ml inj SUBQ SCH ×2 (09:45→21:00)
--- NOTE | 2019-06-09 11:19 | GI Progress Note ---
Assessment/Plan Problems: (1) Ileus ICD Codes: K56.7 - Ileus, unspecified SNOMED: 298385677 (2) Inguinal hernia ICD Codes: K40.90 - Unilateral inguinal hernia, without obstruction or gangrene , not specified as recurrent SNOMED: 095281369 Qualifiers: Qualified Codes: K40.30 - Unilateral inguinal hernia, with obstruction, without gangrene, not specified as recurrent (3) Chest pain ICD Codes: R07.9 - Chest pain, unspecified SNOMED: 51461362 Qualifiers: Qualified Codes: R07.9 - Chest pain, unspecified (4) Incarcerated right inguinal hernia ICD Codes: K40.30 - Unilateral inguinal hernia, with obstruction, without gangrene, not specified as recurrent SNOMED: 132952457 (5) SBO (small bowel obstruction) ICD Codes: K56.609 - Unspecified intestinal obstruction, unspecified as to partial versus complete obstruction SNOMED: 536586306 Status: progressing Status Narrative Discussed with Dr. Krishnamurthy Assessment/Plan Small bowel follow-through taken, pending final read KUB reviewed, functional in nature without any obvious obstruction NGT Rectal tube present Await for ileus to resolve Encourage ambulation plus turn every 2 hours Maintain n.p.o. plus IV fluids serial imaging prn Follow surgical recommendations Pain control The patient was seen and examined at bedside and all new and available data was reviewed in the patients chart. I agree with the above findings, impression and plan. (Patient seen earlier today. Signature stamp does not reflect patient encounter time.). - Kurt Krishnamurthy MD Subjective Subjective Limited Denies any abdominal pain Abdominal distention improved Objective Last 24 Hour Vital Signs Date Time Temp Pulse Resp B/P (MAP) Pulse Ox O2 Delivery O2 Flow Rate FiO2 06/09/19 10:59 Room Air 06/09/19 08:00 98.1 76 22 112/74 (87) 96 06/09/19 04:00 89 06/09/19 04:00 98.2 98 17 131/82 (98) 96 06/09/19 00:00 95 06/09/19 00:00 98.5 100 19 135/84 (101) 96 06/08/19 21:00 Room Air 06/08/19 20:00 98.3 102 18 133/86 (102) 96 06/08/19 20:00 102 1/29/20 18:19 99.3 108 18 112/82 (92) 95 06/08/19 12:00 113 06/08/19 12:00 98.0 120 20 110/81 (91) 97 Intake and Output 06/08/19 06/09/19 18:59 06:59 Intake Total 75 ml 864 ml Output Total 300 ml 1600 ml Balance -225 ml -736 ml Intake IV Total 75 ml 864 ml Output Urine Total 700 ml Stool Total 300 ml 900 ml # Voids 1 1 # Bowel Movements 2 2 Laboratory Tests Test 06/09/19 06:17 White Blood Count 5.3 K/UL (4.8-10.8) Red Blood Count 3.93 M/UL (4.70-6.10) L Hemoglobin 12.8 G/DL (14.2-18.0) L Hematocrit 36.0 % (42.0-52.0) L Mean Corpuscular Volume 92 FL (80-99) Mean Corpuscular Hemoglobin 32.6 PG (27.0-31.0) H Mean Corpuscular Hemoglobin Concent 35.6 G/DL (32.0-36.0) Red Cell Distribution Width 11.6 % (11.6-14.8) Platelet Count 148 K/UL (150-450) L Mean Platelet Volume 4.5 FL (6.5-10.1) L Neutrophils (%) (Auto) 65.6 % (45.0-75.0) Lymphocytes (%) (Auto) 23.5 % (20.0-45.0) Monocytes (%) (Auto) 10.0 % (1.0-10.0) Eosinophils (%) (Auto) 0.0 % (0.0-3.0) Basophils (%) (Auto) 0.9 % (0.0-2.0) Sodium Level 146 MMOL/L (136-145) H Potassium Level 3.7 MMOL/L (3.5-5.1) Chloride Level 112 MMOL/L (98-107) H Carbon Dioxide Level 24 MMOL/L (21-32) Anion Gap 10 mmol/L (5-15) Blood Urea Nitrogen 17 mg/dL (7-18) Creatinine 1.0 MG/DL (0.55-1.30) Estimat Glomerular Filtration Rate > 60 mL/min (>60) Glucose Level 165 MG/DL (74-106) H Calcium Level 7.8 MG/DL (8.5-10.1) L Troponin I 0.010 ng/mL (0.000-0.056) Height (Feet): 5 Height (Inches): 3.00 Weight (Pounds): 115 General Appearance: WD/WN, no apparent distress, alert Cardiovascular: normal rate Respiratory/Chest: normal breath sounds, no respiratory distress Abdominal Exam: normal bowel sounds, non tender, soft Extremities: normal range of motion, non-tender Garry Caballero NP Jun 09, 2019 11:19
[2019-06-09 12:00] VITALS: BP 125/69
--- NOTE | 2019-06-09 12:02 | Surgery Progress Note ---
Surgery Progress Note Subjective Symptoms: improved, other Additional Comments No acute events. Upper GI small bowel studies identified without obstruction contrast in the colon. Likely ileus. NG tube with minimal output. NG tube moved at bedside this morning. Restraints removed. Objective Last 24 Hour Vital Signs Date Time Temp Pulse Resp B/P (MAP) Pulse Ox O2 Delivery O2 Flow Rate FiO2 06/09/19 10:59 Room Air 06/09/19 08:00 98.1 76 22 112/74 (87) 96 06/09/19 04:00 89 06/09/19 04:00 98.2 98 17 131/82 (98) 96 06/09/19 00:00 95 06/09/19 00:00 98.5 100 19 135/84 (101) 96 06/08/19 21:00 Room Air 06/08/19 20:00 98.3 102 18 133/86 (102) 96 06/08/19 20:00 102 06/08/19 18:19 99.3 108 18 112/82 (92) 95 I&O Intake and Output 06/08/19 06/09/19 19:00 07:00 Intake Total 75 ml 864 ml Output Total 300 ml 1600 ml Balance -225 ml -736 ml Intake IV Total 75 ml 864 ml Output Urine Total 700 ml Stool Total 300 ml 900 ml # Voids 1 1 # Bowel Movements 2 2 Cardiovascular: RSR Respiratory: clear Abdomen: soft, distended, non-tender, decreased bowel sounds Extremities: no edema, no tenderness, no cyanosis Laboratory Tests Test 06/09/19 06:17 White Blood Count 5.3 K/UL (4.8-10.8) Red Blood Count 3.93 M/UL (4.70-6.10) L Hemoglobin 12.8 G/DL (14.2-18.0) L Hematocrit 36.0 % (42.0-52.0) L Mean Corpuscular Volume 92 FL (80-99) Mean Corpuscular Hemoglobin 32.6 PG (27.0-31.0) H Mean Corpuscular Hemoglobin Concent 35.6 G/DL (32.0-36.0) Red Cell Distribution Width 11.6 % (11.6-14.8) Platelet Count 148 K/UL (150-450) L Mean Platelet Volume 4.5 FL (6.5-10.1) L Neutrophils (%) (Auto) 65.6 % (45.0-75.0) Lymphocytes (%) (Auto) 23.5 % (20.0-45.0) Monocytes (%) (Auto) 10.0 % (1.0-10.0) Eosinophils (%) (Auto) 0.0 % (0.0-3.0) Basophils (%) (Auto) 0.9 % (0.0-2.0) Sodium Level 146 MMOL/L (136-145) H Potassium Level 3.7 MMOL/L (3.5-5.1) Chloride Level 112 MMOL/L (98-107) H Carbon Dioxide Level 24 MMOL/L (21-32) Anion Gap 10 mmol/L (5-15) Blood Urea Nitrogen 17 mg/dL (7-18) Creatinine 1.0 MG/DL (0.55-1.30) Estimat Glomerular Filtration Rate > 60 mL/min (>60) Glucose Level 165 MG/DL (74-106) H Calcium Level 7.8 MG/DL (8.5-10.1) L Troponin I 0.010 ng/mL (0.000-0.056) Plan Problems: (1) Inguinal hernia (2) SBO (small bowel obstruction) Assessment & Plan: Findings: Lack of enteric contrast limits assessment of the GI tract. There is an indirect right inguinal hernia which contains a single loop of small bowel, probably distal ileum. Most of the small bowel is dilated and fluid-filled except for right lower quadrant ileum which is most likely small bowel distal to the hernia. No small bowel wall thickening or pneumatosis. The appendix is normal. There is no evidence of colonic diverticulosis or diverticulitis. There is a rectal tube in place. No free or loculated intraperitoneal gas or fluid is evident. Stomach is distended with ingested material and gas. The duodenum is grossly unremarkable. The gallbladder is nondistended. There, pancreas, spleen, adrenals, kidneys are unremarkable. No retroperitoneal or mesenteric mass or adenopathy. The bladder is markedly distended. No renal or ureteral calculi, hydronephrosis, or hydroureter. The included lung bases are somewhat obscured by motion artifact, grossly unremarkable. The bones are unremarkable. Impression: Indirect right inguinal hernia containing a loop of distal ileum, resulting in small bowel obstruction Rectal tube in place Distended bladder (3) Chest pain (4) Incarcerated right inguinal hernia Assessment & Plan: 48 year old male with incarcerated right inguinal hernia. known history of RIH. plan for prior repair but did not. now incarcerated causing sbo. was reduced in ED by physician. no n/v/f/c diarrhea abd soft, distended, non tender, decreased bs labs noted imaging reviewed npo iv fluids serial exams ? if bowel compromise as do not know how long incarcerated for and pt with developmental delay will need to monitor for bowel ischemia, perforation, recurrence KUB noted from this AM Small bowel series without obstruction await return of bowel function / resolution of ileus will follow with recs thank you Alan Freedman Jun 09, 2019 12:02
--- NOTE | 2019-06-09 12:42 | Diagnostic Imaging Report ---
Indication: Abdominal distention, history of recent right inguinal hernia reduction Technique: Patient ingested water-soluble contrast. Serial overhead films were obtained. No fluoroscopy utilized. Total number of images 13 Comparison: [employer] film compared to plain radiograph of earlier the same day Findings: Bl[employer] film demonstrates diffusely mildly distended gas-filled small bowel loops. Considerable gas is seen within nondilated colon. There is a nasogastric tube in good position in the stomach. There is a rectal catheter and a Sanches catheter noted. After contrast administration, there is study forward transit of contrast throughout small bowel. Proximal small bowel loops are dilated, demonstrating normal mucosal pattern. At 3 hours, contrast is seen as far distally as the splenic flexure of the colon. On the later images, there is apparent decreased caliber of the small bowel. Impression: Contrast reaches the colon by 2 hours, indicating absence of small bowel obstruction. Mild proximal dilatation of the small bowel is presumably therefore functional in nature or on the basis of ileus changes. Findings suspicious phone with Dr. Freedman
--- NOTE | 2019-06-09 14:33 | General Progress Note ---
Assessment/Plan Problem List: (1) Inguinal hernia ICD Codes: K40.90 - Unilateral inguinal hernia, without obstruction or gangrene , not specified as recurrent SNOMED: 722116104 Qualifiers: Qualified Codes: K40.30 - Unilateral inguinal hernia, with obstruction, without gangrene, not specified as recurrent (2) Chest pain ICD Codes: R07.9 - Chest pain, unspecified SNOMED: 57989407 Qualifiers: Qualified Codes: R07.9 - Chest pain, unspecified (3) Incarcerated right inguinal hernia ICD Codes: K40.30 - Unilateral inguinal hernia, with obstruction, without gangrene, not specified as recurrent SNOMED: 228019002 (4) SBO (small bowel obstruction) ICD Codes: K56.609 - Unspecified intestinal obstruction, unspecified as to partial versus complete obstruction SNOMED: 203778139 (5) Ileus ICD Codes: K56.7 - Ileus, unspecified SNOMED: 107633947 Status: stable, progressing Assessment/Plan: npo ivf diet gi sx f/u cbc bmp am Subjective Constitutional: Reports: weakness Allergies: Coded Allergies: No Known Allergies (Unverified , 03/27/17) All Systems: reviewed and negative except above Subjective sleepy confused Objective Last 24 Hour Vital Signs Date Time Temp Pulse Resp B/P (MAP) Pulse Ox O2 Delivery O2 Flow Rate FiO2 06/09/19 12:00 98.2 84 20 125/69 (87) 95 06/09/19 10:59 Room Air 06/09/19 08:00 98.1 76 22 112/74 (87) 96 06/09/19 04:00 89 06/09/19 04:00 98.2 98 17 131/82 (98) 96 06/09/19 00:00 95 06/09/19 00:00 98.5 100 19 135/84 (101) 96 06/08/19 21:00 Room Air 06/08/19 20:00 98.3 102 18 133/86 (102) 96 06/08/19 20:00 102 06/08/19 18:19 99.3 108 18 112/82 (92) 95 Intake and Output 06/08/19 06/09/19 19:00 07:00 Intake Total 75 ml 864 ml Output Total 300 ml 1600 ml Balance -225 ml -736 ml Intake IV Total 75 ml 864 ml Output Urine Total 700 ml Stool Total 300 ml 900 ml # Voids 1 1 # Bowel Movements 2 2 Laboratory Tests 06/09/19 06:17: White Blood Count 5.3, Red Blood Count 3.93L, Hemoglobin 12.8L, Hematocrit 36.0L , Mean Corpuscular Volume 92, Mean Corpuscular Hemoglobin 32.6H, Mean Corpuscular Hemoglobin Concent 35.6, Red Cell Distribution Width 11.6, Platelet Count 148L, Mean Platelet Volume 4.5L, Neutrophils (%) (Auto) 65.6, Lymphocytes (%) (Auto) 23.5, Monocytes (%) (Auto) 10.0, Eosinophils (%) (Auto) 0.0, Basophils (%) (Auto) 0.9, Sodium Level 146H, Potassium Level 3.7, Chloride Level 112H, Carbon Dioxide Level 24, Anion Gap 10, Blood Urea Nitrogen 17, Creatinine 1.0, Estimat Glomerular Filtration Rate > 60, Glucose Level 165H, Calcium Level 7.8L, Troponin I 0.010 Height (Feet): 5 Height (Inches): 3.00 Weight (Pounds): 115 General Appearance: lethargic EENT: normal ENT inspection Neck: normal alignment Cardiovascular: normal peripheral pulses, normal rate, regular rhythm Respiratory/Chest: chest wall non-tender, lungs clear, normal breath sounds Abdomen: soft, hypoactive bowel sounds Extremities: normal inspection Edema: no edema noted Arm (L), no edema noted Arm (R), no edema noted Leg (L), no edema noted Leg (R), no edema noted Pedal (L), no edema noted Pedal (R), no edema noted Generalized Neurologic: motor weakness Skin: normal pigmentation, warm/dry Kevin Velazco DO Jun 09, 2019 14:33
[2019-06-09 16:00] VITALS: BP 114/72
--- NOTE | 2019-06-09 16:00 | Cardiac Electrophysiology PN ---
Assessment/Plan Assessment/Plan ASSESSMENT AND PLAN: 1. Chest pain, likely due to epigastric pain due to the small bowel obstruction. Troponins are negative. EKG does not show any acute ischemic changes. Echo Nl EF 2.Sinus Tachycardia with no evidence of atrial fibrillation. 3. Small bowel obstruction. Further evaluation by Dr. Freedman and Dr. Krishnamurthy. 4. Inguinal hernia. 5. Down Syndrome DW sister and RN at bedside Subjective Subjective Alert in NAD. Sister at bedside. Awaiting BM to be started feeding. Objective Last 24 Hour Vital Signs Date Time Temp Pulse Resp B/P (MAP) Pulse Ox O2 Delivery O2 Flow Rate FiO2 06/09/19 12:00 98.2 84 20 125/69 (87) 95 06/09/19 10:59 Room Air 06/09/19 08:00 98.1 76 22 112/74 (87) 96 06/09/19 04:00 89 06/09/19 04:00 98.2 98 17 131/82 (98) 96 06/09/19 00:00 95 06/09/19 00:00 98.5 100 19 135/84 (101) 96 06/08/19 21:00 Room Air 06/08/19 20:00 98.3 102 18 133/86 (102) 96 06/08/19 20:00 102 06/08/19 18:19 99.3 108 18 112/82 (92) 95 Intake and Output 06/08/19 06/09/19 19:00 07:00 Intake Total 75 ml 864 ml Output Total 300 ml 1600 ml Balance -225 ml -736 ml Intake IV Total 75 ml 864 ml Output Urine Total 700 ml Stool Total 300 ml 900 ml # Voids 1 1 # Bowel Movements 2 2 Laboratory Tests Test 06/09/19 06:17 White Blood Count 5.3 K/UL (4.8-10.8) Red Blood Count 3.93 M/UL (4.70-6.10) L Hemoglobin 12.8 G/DL (14.2-18.0) L Hematocrit 36.0 % (42.0-52.0) L Mean Corpuscular Volume 92 FL (80-99) Mean Corpuscular Hemoglobin 32.6 PG (27.0-31.0) H Mean Corpuscular Hemoglobin Concent 35.6 G/DL (32.0-36.0) Red Cell Distribution Width 11.6 % (11.6-14.8) Platelet Count 148 K/UL (150-450) L Mean Platelet Volume 4.5 FL (6.5-10.1) L Neutrophils (%) (Auto) 65.6 % (45.0-75.0) Lymphocytes (%) (Auto) 23.5 % (20.0-45.0) Monocytes (%) (Auto) 10.0 % (1.0-10.0) Eosinophils (%) (Auto) 0.0 % (0.0-3.0) Basophils (%) (Auto) 0.9 % (0.0-2.0) Sodium Level 146 MMOL/L (136-145) H Potassium Level 3.7 MMOL/L (3.5-5.1) Chloride Level 112 MMOL/L (98-107) H Carbon Dioxide Level 24 MMOL/L (21-32) Anion Gap 10 mmol/L (5-15) Blood Urea Nitrogen 17 mg/dL (7-18) Creatinine 1.0 MG/DL (0.55-1.30) Estimat Glomerular Filtration Rate > 60 mL/min (>60) Glucose Level 165 MG/DL (74-106) H Calcium Level 7.8 MG/DL (8.5-10.1) L Troponin I 0.010 ng/mL (0.000-0.056) Microbiology Date/Time Source Procedure Growth Status 06/08/19 10:00 Stool Clostridium difficile Toxin Assay - Final Complete 06/07/19 16:41 Rectum Received Objective HEAD AND NECK: Showed no JVD. LUNGS: Clear. CARDIOVASCULAR: Tachycardic. S1 and S2 with no gallop. ABDOMEN: Soft EXTREMITIES: No pitting edema. Carlos Alberto Blanchard MD Jun 09, 2019 16:00
--- NOTE | 2019-06-09 19:35 | NUR ---
NURSE NOTES: Received report from TREVRO Mcclain. Patient is in bed, awake and responsive. Breathing regular and unlabored with no s/s of SOB noted at this time. Patient's IV access is on the LAC, 20G, currently running fluids at prescribed rate. Patient's sister is at bedside. Patient has a rectal tube in place, draining properly. Bed is in lowest position, breaks engaged, and call-light is within reach at all times. Patient is currently stable, all other needs attended to, will continue to monitor.
[2019-06-09 20:00] VITALS: BP 118/77
[2019-06-10] VITALS: BP 113/76
[2019-06-10 04:00] VITALS: BP 118/73
[2019-06-10 05:09] LABS: BASOPHILS % (AUTO) 1.3 % (0.0-2.0); EOSINOPHILS % (AUTO) 0.9 % (0.0-3.0); HEMATOCRIT 33.9 % (42.0-52.0); HEMOGLOBIN 12.2 G/DL (14.2-18.0); LYMPHOCYTES % (AUTO) 35.3 % (20.0-45.0); MEAN CORPUSCULAR VOLUME 91 FL (80-99); MONOCYTES % (AUTO) 10.5 % (1.0-10.0); PLATELET COUNT 157 K/UL (150-450); RED BLOOD COUNT 3.72 M/UL (4.70-6.10); RED CELL DISTRIBUTION WIDTH 11.6 % (11.6-14.8); WHITE BLOOD COUNT 4.4 K/UL (4.8-10.8)
[2019-06-10 05:20] LABS: ANION GAP 6 mmol/L (5-15); BLOOD UREA NITROGEN 13 mg/dL (7-18); CALCIUM 7.9 MG/DL (8.5-10.1); CARBON DIOXIDE 26 MMOL/L (21-32); CHLORIDE 112 MMOL/L (98-107); CREATININE 0.8 MG/DL (0.55-1.30); SODIUM 144 MMOL/L (136-145)
[2019-06-10] MEDS: NovoLOG Insulin Flexpen SUBQ SCH ×4 (06:01→21:00)
--- NOTE | 2019-06-10 07:11 | NUR ---
HAND-OFF: Report given to TREVOR Mcclain. Patient in stable condition.
[2019-06-10 08:00] VITALS: BP 113/78
[2019-06-10] MEDS: Heparin 5000 units/ml inj SUBQ SCH ×2 (08:52→21:47)
--- NOTE | 2019-06-10 09:06 | General Progress Note ---
Assessment/Plan Problem List: (1) Inguinal hernia ICD Codes: K40.90 - Unilateral inguinal hernia, without obstruction or gangrene , not specified as recurrent SNOMED: 521460390 Qualifiers: Qualified Codes: K40.30 - Unilateral inguinal hernia, with obstruction, without gangrene, not specified as recurrent (2) Chest pain ICD Codes: R07.9 - Chest pain, unspecified SNOMED: 99099379 Qualifiers: Qualified Codes: R07.9 - Chest pain, unspecified (3) Incarcerated right inguinal hernia ICD Codes: K40.30 - Unilateral inguinal hernia, with obstruction, without gangrene, not specified as recurrent SNOMED: 124712722 (4) SBO (small bowel obstruction) ICD Codes: K56.609 - Unspecified intestinal obstruction, unspecified as to partial versus complete obstruction SNOMED: 929989256 (5) Ileus ICD Codes: K56.7 - Ileus, unspecified SNOMED: 202992152 Status: stable, progressing Assessment/Plan: npo ivf diet per gi sx f/u cbc bmp am Subjective Constitutional: Reports: weakness Allergies: Coded Allergies: No Known Allergies (Unverified , 03/27/17) All Systems: reviewed and negative except above Subjective sleepy confused Objective Last 24 Hour Vital Signs Date Time Temp Pulse Resp B/P (MAP) Pulse Ox O2 Delivery O2 Flow Rate FiO2 06/10/19 04:00 58 06/10/19 04:00 97.8 76 16 118/73 (88) 97 06/10/19 00:00 80 06/10/19 00:00 98.1 73 16 113/76 (88) 98 06/09/19 21:00 Room Air 06/09/19 20:00 89 06/09/19 20:00 98.4 82 16 118/77 (91) 99 06/09/19 16:00 78 06/09/19 16:00 97.4 76 20 114/72 (86) 97 06/09/19 12:00 98.2 84 20 125/69 (87) 95 06/09/19 12:00 87 06/09/19 10:59 Room Air Intake and Output 06/09/19 06/10/19 19:00 07:00 Output Total 500 ml 1800 ml Balance -500 ml -1800 ml Output Urine Total 500 ml 900 ml Stool Total 900 ml # Voids 1 1 # Bowel Movements 1 2 Laboratory Tests 06/10/19 04:40: White Blood Count 4.4L, Red Blood Count 3.72L, Hemoglobin 12.2L, Hematocrit 33.9L, Mean Corpuscular Volume 91, Mean Corpuscular Hemoglobin 32.8H, Mean Corpuscular Hemoglobin Concent 36.0, Red Cell Distribution Width 11.6, Platelet Count 157, Mean Platelet Volume 4.3L, Neutrophils (%) (Auto) 52.0, Lymphocytes ( %) (Auto) 35.3, Monocytes (%) (Auto) 10.5H, Eosinophils (%) (Auto) 0.9, Basophils (%) (Auto) 1.3, Sodium Level 144, Potassium Level 4.0, Chloride Level 112H, Carbon Dioxide Level 26, Anion Gap 6, Blood Urea Nitrogen 13, Creatinine 0.8, Estimat Glomerular Filtration Rate > 60, Glucose Level 157H, Calcium Level 7.9L Height (Feet): 5 Height (Inches): 3.00 Weight (Pounds): 115 General Appearance: lethargic EENT: normal ENT inspection Neck: normal alignment Cardiovascular: normal peripheral pulses, normal rate, regular rhythm Respiratory/Chest: chest wall non-tender, lungs clear, normal breath sounds Abdomen: non tender, soft, decreased bowel sounds Extremities: normal inspection Edema: no edema noted Arm (L), no edema noted Arm (R), no edema noted Leg (L), no edema noted Leg (R), no edema noted Pedal (L), no edema noted Pedal (R), no edema noted Generalized Neurologic: motor weakness Skin: normal pigmentation, warm/dry Kevin Velazco DO Jun 10, 2019 09:06
--- NOTE | 2019-06-10 09:35 | NUR ---
RD ASSESSMENT & RECOMMENDATIONS SEE CARE ACTIVITY FOR COMPLETE ASSESSMENT DAILY ESTIMATED NEEDS: Needs based on GI, DM 53.8kg 25-30 kcals/kg 8735-8681 total kcals 1-1.5 g protein/kg 54-81 g total protein 25-30 mL/kg 4444-9887 total fluid mLs NUTRITION DIAGNOSIS: Altered GI fxn r/t SBO, ileus as evidenced by pt w/ NGT to LIS, w/ incarcerated hernia causing bowel obstruction, NPO. CURRENT DIET:NPO PO DIET RECOMMENDATIONS: Clears/ per MD ADDITIONAL RECOMMENDATIONS: 1) Maintain calibrated bed scale wts 2) Monitor for hypoglycemia while NPO status 3) Wound care: w/ oral diet-> add BRISEIDA FRUIT PUNCH BID + Vit C 250mg daily
--- NOTE | 2019-06-10 10:10 | Cardiac Electrophysiology PN ---
Assessment/Plan Assessment/Plan 1. Chest pain, likely due to epigastric pain due to the small bowel obstruction. Troponins are negative. EKG does not show any acute ischemic changes. Echo Nl EF 2.Sinus Tachycardia with no evidence of atrial fibrillation. 3. Small bowel obstruction. Still no BM. Further evaluation by Dr. Freedman and Dr. Krishnamurthy. 4. Inguinal hernia. 5. Down Syndrome DW sister and RN at bedside Subjective Subjective Alert in NAD. Sister at bedside. Still no BM. Objective Last 24 Hour Vital Signs Date Time Temp Pulse Resp B/P (MAP) Pulse Ox O2 Delivery O2 Flow Rate FiO2 06/10/19 08:00 98.7 76 18 113/78 (90) 97 06/10/19 04:00 58 06/10/19 04:00 97.8 76 16 118/73 (88) 97 06/10/19 00:00 80 06/10/19 00:00 98.1 73 16 113/76 (88) 98 06/09/19 21:00 Room Air 06/09/19 20:00 89 06/09/19 20:00 98.4 82 16 118/77 (91) 99 06/09/19 16:00 78 06/09/19 16:00 97.4 76 20 114/72 (86) 97 06/09/19 12:00 98.2 84 20 125/69 (87) 95 06/09/19 12:00 87 06/09/19 10:59 Room Air Intake and Output 06/09/19 06/10/19 19:00 07:00 Output Total 500 ml 1800 ml Balance -500 ml -1800 ml Output Urine Total 500 ml 900 ml Stool Total 900 ml # Voids 1 1 # Bowel Movements 1 2 Laboratory Tests Test 06/10/19 04:40 White Blood Count 4.4 K/UL (4.8-10.8) L Red Blood Count 3.72 M/UL (4.70-6.10) L Hemoglobin 12.2 G/DL (14.2-18.0) L Hematocrit 33.9 % (42.0-52.0) L Mean Corpuscular Volume 91 FL (80-99) Mean Corpuscular Hemoglobin 32.8 PG (27.0-31.0) H Mean Corpuscular Hemoglobin Concent 36.0 G/DL (32.0-36.0) Red Cell Distribution Width 11.6 % (11.6-14.8) Platelet Count 157 K/UL (150-450) Mean Platelet Volume 4.3 FL (6.5-10.1) L Neutrophils (%) (Auto) 52.0 % (45.0-75.0) Lymphocytes (%) (Auto) 35.3 % (20.0-45.0) Monocytes (%) (Auto) 10.5 % (1.0-10.0) H Eosinophils (%) (Auto) 0.9 % (0.0-3.0) Basophils (%) (Auto) 1.3 % (0.0-2.0) Sodium Level 144 MMOL/L (136-145) Potassium Level 4.0 MMOL/L (3.5-5.1) Chloride Level 112 MMOL/L (98-107) H Carbon Dioxide Level 26 MMOL/L (21-32) Anion Gap 6 mmol/L (5-15) Blood Urea Nitrogen 13 mg/dL (7-18) Creatinine 0.8 MG/DL (0.55-1.30) Estimat Glomerular Filtration Rate > 60 mL/min (>60) Glucose Level 157 MG/DL (74-106) H Calcium Level 7.9 MG/DL (8.5-10.1) L Microbiology Date/Time Source Procedure Growth Status 06/07/19 16:41 Nasal Nares MRSA Culture - Final NO METHICILLIN RESISTANT STAPH AUREUS... Complete 06/08/19 10:00 Stool Clostridium difficile Toxin Assay - Final Complete 06/07/19 16:41 Rectum - Final NO CARBAPENEM-RESISTANT ENTEROBACTERI... Complete 06/07/19 16:41 Rectum VRE Culture - Final NO VANCOMYCIN RESISTANT ENTEROCOCCUS ... Complete Objective HEAD AND NECK: No JVD. LUNGS: Clear. CARDIOVASCULAR: Regular S1 and S2 with no gallop. ABDOMEN: Soft EXTREMITIES: No pitting edema. Carlos Alberto Blanchard MD Jun 10, 2019 10:10
--- NOTE | 2019-06-10 10:36 | NUR ---
CASE MANAGEMENT: REVIEW SI:INCARCERATED RT INGUINAL HERNIA W/SBO 98.7 76 18 113/78 97% RA CO2 157 CA 7.9 IS;SS INSULIN IVFS @ 75MLS/HR PEPCID IV Q12H HEPARIN SUBQ Q12H ~~~~~TELEMETRY 2EAST DCP: FROM HOME
--- NOTE | 2019-06-10 11:12 | GI Progress Note ---
Assessment/Plan Problems: (1) Ileus ICD Codes: K56.7 - Ileus, unspecified SNOMED: 850943275 (2) Inguinal hernia ICD Codes: K40.90 - Unilateral inguinal hernia, without obstruction or gangrene , not specified as recurrent SNOMED: 548668050 Qualifiers: Qualified Codes: K40.30 - Unilateral inguinal hernia, with obstruction, without gangrene, not specified as recurrent (3) Chest pain ICD Codes: R07.9 - Chest pain, unspecified SNOMED: 08794834 Qualifiers: Qualified Codes: R07.9 - Chest pain, unspecified (4) Incarcerated right inguinal hernia ICD Codes: K40.30 - Unilateral inguinal hernia, with obstruction, without gangrene, not specified as recurrent SNOMED: 191572300 (5) SBO (small bowel obstruction) ICD Codes: K56.609 - Unspecified intestinal obstruction, unspecified as to partial versus complete obstruction SNOMED: 779567229 Status: progressing Status Narrative Discussed with Dr. Krishnamurthy. Assessment/Plan Small bowel follow-through reviewed, ileus KUB reviewed, functional in nature without any obvious obstruction Rectal tube present Await for ileus to resolve PT evaluation Encourage ambulation plus turn every 2 hours N.p.o. plus IV fluids serial imaging prn Follow surgical recommendations Pain control The patient was seen and examined at bedside and all new and available data was reviewed in the patients chart. I agree with the above findings, impression and plan. (Patient seen earlier today. Signature stamp does not reflect patient encounter time.). - Kurt Krishnamurthy MD Subjective Subjective Limited Denies any abdominal pain Abdominal distention improved Objective Last 24 Hour Vital Signs Date Time Temp Pulse Resp B/P (MAP) Pulse Ox O2 Delivery O2 Flow Rate FiO2 06/10/19 10:59 Room Air 06/10/19 08:00 68 06/10/19 08:00 98.7 76 18 113/78 (90) 97 06/10/19 04:00 58 06/10/19 04:00 97.8 76 16 118/73 (88) 97 06/10/19 00:00 80 06/10/19 00:00 98.1 73 16 113/76 (88) 98 06/09/19 21:00 Room Air 06/09/19 20:00 89 06/09/19 20:00 98.4 82 16 118/77 (91) 99 06/09/19 16:00 78 06/09/19 16:00 97.4 76 20 114/72 (86) 97 06/09/19 12:00 98.2 84 20 125/69 (87) 95 06/09/19 12:00 87 Intake and Output 06/09/19 06/10/19 19:00 07:00 Output Total 500 ml 1800 ml Balance -500 ml -1800 ml Output Urine Total 500 ml 900 ml Stool Total 900 ml # Voids 1 1 # Bowel Movements 1 2 Laboratory Tests Test 06/10/19 04:40 White Blood Count 4.4 K/UL (4.8-10.8) L Red Blood Count 3.72 M/UL (4.70-6.10) L Hemoglobin 12.2 G/DL (14.2-18.0) L Hematocrit 33.9 % (42.0-52.0) L Mean Corpuscular Volume 91 FL (80-99) Mean Corpuscular Hemoglobin 32.8 PG (27.0-31.0) H Mean Corpuscular Hemoglobin Concent 36.0 G/DL (32.0-36.0) Red Cell Distribution Width 11.6 % (11.6-14.8) Platelet Count 157 K/UL (150-450) Mean Platelet Volume 4.3 FL (6.5-10.1) L Neutrophils (%) (Auto) 52.0 % (45.0-75.0) Lymphocytes (%) (Auto) 35.3 % (20.0-45.0) Monocytes (%) (Auto) 10.5 % (1.0-10.0) H Eosinophils (%) (Auto) 0.9 % (0.0-3.0) Basophils (%) (Auto) 1.3 % (0.0-2.0) Sodium Level 144 MMOL/L (136-145) Potassium Level 4.0 MMOL/L (3.5-5.1) Chloride Level 112 MMOL/L (98-107) H Carbon Dioxide Level 26 MMOL/L (21-32) Anion Gap 6 mmol/L (5-15) Blood Urea Nitrogen 13 mg/dL (7-18) Creatinine 0.8 MG/DL (0.55-1.30) Estimat Glomerular Filtration Rate > 60 mL/min (>60) Glucose Level 157 MG/DL (74-106) H Calcium Level 7.9 MG/DL (8.5-10.1) L Height (Feet): 5 Height (Inches): 3.00 Weight (Pounds): 115 General Appearance: WD/WN, no apparent distress, alert Cardiovascular: normal rate Respiratory/Chest: normal breath sounds, no respiratory distress Abdominal Exam: normal bowel sounds, non tender, soft Extremities: normal range of motion, non-tender Garry Caballero [employer] Jun 10, 2019 11:12
[2019-06-10 12:00] VITALS: BP 119/78
[2019-06-10] MEDS: D5 1/2NS w/KCl 20mEq 1,000 ML IV SCH (12:02)
--- NOTE | 2019-06-10 14:11 | NUR ---
*-* INSURANCE *-* ALL CLINICALS AND REVIEW HAVE BEEN FAXED TO: JENNIFER GRAHAM: [employer] Addendum: 06/10/19 at 1427 by RITCHIE FRAIRE CM ref#[id number]
--- NOTE | 2019-06-10 14:48 | Surgery Progress Note ---
Surgery Progress Note Subjective Symptoms: improved Additional Comments no n/v/f/c. ambulatory Objective Last 24 Hour Vital Signs Date Time Temp Pulse Resp B/P (MAP) Pulse Ox O2 Delivery O2 Flow Rate FiO2 06/10/19 10:59 Room Air 06/10/19 08:00 68 06/10/19 08:00 98.7 76 18 113/78 (90) 97 06/10/19 04:00 58 06/10/19 04:00 97.8 76 16 118/73 (88) 97 06/10/19 00:00 80 06/10/19 00:00 98.1 73 16 113/76 (88) 98 06/09/19 21:00 Room Air 06/09/19 20:00 89 06/09/19 20:00 98.4 82 16 118/77 (91) 99 06/09/19 16:00 78 06/09/19 16:00 97.4 76 20 114/72 (86) 97 I&O Intake and Output 06/09/19 06/10/19 19:00 07:00 Output Total 500 ml 1800 ml Balance -500 ml -1800 ml Output Urine Total 500 ml 900 ml Stool Total 900 ml # Voids 1 1 # Bowel Movements 1 2 Cardiovascular: RSR Respiratory: clear Abdomen: soft, distended, non-tender, decreased bowel sounds Extremities: no edema, no tenderness, no cyanosis Laboratory Tests Test 06/10/19 04:40 White Blood Count 4.4 K/UL (4.8-10.8) L Red Blood Count 3.72 M/UL (4.70-6.10) L Hemoglobin 12.2 G/DL (14.2-18.0) L Hematocrit 33.9 % (42.0-52.0) L Mean Corpuscular Volume 91 FL (80-99) Mean Corpuscular Hemoglobin 32.8 PG (27.0-31.0) H Mean Corpuscular Hemoglobin Concent 36.0 G/DL (32.0-36.0) Red Cell Distribution Width 11.6 % (11.6-14.8) Platelet Count 157 K/UL (150-450) Mean Platelet Volume 4.3 FL (6.5-10.1) L Neutrophils (%) (Auto) 52.0 % (45.0-75.0) Lymphocytes (%) (Auto) 35.3 % (20.0-45.0) Monocytes (%) (Auto) 10.5 % (1.0-10.0) H Eosinophils (%) (Auto) 0.9 % (0.0-3.0) Basophils (%) (Auto) 1.3 % (0.0-2.0) Sodium Level 144 MMOL/L (136-145) Potassium Level 4.0 MMOL/L (3.5-5.1) Chloride Level 112 MMOL/L (98-107) H Carbon Dioxide Level 26 MMOL/L (21-32) Anion Gap 6 mmol/L (5-15) Blood Urea Nitrogen 13 mg/dL (7-18) Creatinine 0.8 MG/DL (0.55-1.30) Estimat Glomerular Filtration Rate > 60 mL/min (>60) Glucose Level 157 MG/DL (74-106) H Calcium Level 7.9 MG/DL (8.5-10.1) L Plan Problems: (1) Inguinal hernia (2) SBO (small bowel obstruction) Assessment & Plan: Findings: Lack of enteric contrast limits assessment of the GI tract. There is an indirect right inguinal hernia which contains a single loop of small bowel, probably distal ileum. Most of the small bowel is dilated and fluid-filled except for right lower quadrant ileum which is most likely small bowel distal to the hernia. No small bowel wall thickening or pneumatosis. The appendix is normal. There is no evidence of colonic diverticulosis or diverticulitis. There is a rectal tube in place. No free or loculated intraperitoneal gas or fluid is evident. Stomach is distended with ingested material and gas. The duodenum is grossly unremarkable. The gallbladder is nondistended. There, pancreas, spleen, adrenals, kidneys are unremarkable. No retroperitoneal or mesenteric mass or adenopathy. The bladder is markedly distended. No renal or ureteral calculi, hydronephrosis, or hydroureter. The included lung bases are somewhat obscured by motion artifact, grossly unremarkable. The bones are unremarkable. Impression: Indirect right inguinal hernia containing a loop of distal ileum, resulting in small bowel obstruction Rectal tube in place Distended bladder (3) Chest pain (4) Incarcerated right inguinal hernia Assessment & Plan: 48 year old male with incarcerated right inguinal hernia. known history of RIH. plan for prior repair but did not. now incarcerated causing sbo. was reduced in ED by physician. no n/v/f/c diarrhea abd soft, distended, non tender, decreased bs labs noted imaging reviewed npo iv fluids serial exams ? if bowel compromise as do not know how long incarcerated for and pt with developmental delay will need to monitor for bowel ischemia, perforation, recurrence KUB noted from this AM Small bowel series without obstruction await return of bowel function / resolution of ileus will follow with recs thank you Alan Freedman Jun 10, 2019 14:48
[2019-06-10 16:00] VITALS: BP 119/69
--- NOTE | 2019-06-10 19:35 | NUR ---
NURSE NOTES: Received report from TREVOR Mcclani. Patient is in bed, awake and responsive. Breathing regular and unlabored with no s/s of SOB noted at this time. Patient still has the rectal tube in place as well as the Sanches catheter for urinary retention, both draining properly. Patient's IV access is on the R Wrist 24G, running fluids at prescribed rate. No c/o pain or discomfort noted at this time. Patient's sister is at bedside, will be leaving shortly. Bed is in lowest position, breaks engaged, and call light is within reach at all times. All other needs attended to, patient remains stable. Will continue to monitor.
[2019-06-10 20:00] VITALS: BP 104/79
[2019-06-11] VITALS: BP 125/74
[2019-06-11] MEDS: D5 1/2NS w/KCl 20mEq 1,000 ML IV SCH ×3 (02:50→17:03)
--- NOTE | 2019-06-11 03:44 | NUR ---
NURSE NOTES: Noted patient suddenly started to yell and bang on the side of the bed. Attended to the patient right away to try and calm him down and see what was wrong. Patient was continuously screaming, banging on the bed, trying to remove his IV. Multiple RN's attended to the patient in attempt to calm him down and preventing him from trying to pull out his IV. Administered PRN Ativan as ordered for anxiety. Remained with the patient in attempt to relieve anxiety. Contacted the patient's sister and left a voicemail in regards to what had occurred. Patient is currently stable, patient appears to be calm, no longer banging on anything, no longer yelling, and no longer pulling on anything. Patient is not in any acute distress, VS remain stable, all other needs attended to, call light within reach, will continue to monitor.
[2019-06-11 04:00] VITALS: BP 100/63
[2019-06-11] MEDS: NovoLOG Insulin Flexpen SUBQ SCH ×4 (06:30→21:00)
[2019-06-11 07:25] LABS: ANION GAP 9 mmol/L (5-15); BLOOD UREA NITROGEN 9 mg/dL (7-18); CALCIUM 8.3 MG/DL (8.5-10.1); CARBON DIOXIDE 25 MMOL/L (21-32); CHLORIDE 109 MMOL/L (98-107); CREATININE 0.8 MG/DL (0.55-1.30); POTASSIUM 3.5 MMOL/L (3.5-5.1); SODIUM 143 MMOL/L (136-145)
[2019-06-11 07:26] LABS: BASOPHILS % (AUTO) 1.1 % (0.0-2.0); EOSINOPHILS % (AUTO) 1.2 % (0.0-3.0); HEMATOCRIT 32.3 % (42.0-52.0); HEMOGLOBIN 11.6 G/DL (14.2-18.0); LYMPHOCYTES % (AUTO) 34.8 % (20.0-45.0); MEAN CORPUSCULAR VOLUME 90 FL (80-99); MONOCYTES % (AUTO) 11.3 % (1.0-10.0); NEUTROPHILS % (AUTO) 51.7 % (45.0-75.0); PLATELET COUNT 145 K/UL (150-450); RED BLOOD COUNT 3.57 M/UL (4.70-6.10)
--- NOTE | 2019-06-11 07:44 | NUR ---
HAND-OFF: Report given to TREVOR Islas. Plan of care endorsed, patient remains stable.
--- NOTE | 2019-06-11 07:46 | NUR ---
NURSE NOTES: Received report from Joseline/RN, Patient is asleep, lying semi-hays's, resting comfortably. On room air, no acute distress/SOB noted. Sanches draining well to gravity. Rectal tube intact. IV on right wrist patent, no infiltration or bleeding noted, D5 1/2 NS running at 75cc/hr. Bed in low position and locked, Bed alarm is on, side-rails up x3. Call light within reach. Will continue plan of care.
[2019-06-11 08:00] VITALS: BP 109/72
--- NOTE | 2019-06-11 09:05 | General Progress Note ---
Assessment/Plan Problem List: (1) Inguinal hernia ICD Codes: K40.90 - Unilateral inguinal hernia, without obstruction or gangrene , not specified as recurrent SNOMED: 077063363 Qualifiers: Qualified Codes: K40.30 - Unilateral inguinal hernia, with obstruction, without gangrene, not specified as recurrent (2) Chest pain ICD Codes: R07.9 - Chest pain, unspecified SNOMED: 86132693 Qualifiers: Qualified Codes: R07.9 - Chest pain, unspecified (3) Incarcerated right inguinal hernia ICD Codes: K40.30 - Unilateral inguinal hernia, with obstruction, without gangrene, not specified as recurrent SNOMED: 417419058 (4) SBO (small bowel obstruction) ICD Codes: K56.609 - Unspecified intestinal obstruction, unspecified as to partial versus complete obstruction SNOMED: 616834763 (5) Ileus ICD Codes: K56.7 - Ileus, unspecified SNOMED: 324214025 (6) Pancytopenia ICD Codes: D61.818 - Other pancytopenia SNOMED: 563604681 Status: progressing Assessment/Plan: npo ivf diet per gi sx f/u heme eval cbc bmp am Subjective Constitutional: Reports: weakness Allergies: Coded Allergies: No Known Allergies (Unverified , 03/27/17) All Systems: reviewed and negative except above Subjective sleepy confused Objective Last 24 Hour Vital Signs Date Time Temp Pulse Resp B/P (MAP) Pulse Ox O2 Delivery O2 Flow Rate FiO2 06/11/19 04:00 83 06/11/19 04:00 98.2 75 16 100/63 (75) 97 06/11/19 00:00 63 06/11/19 00:00 97.5 72 16 125/74 (91) 96 06/10/19 21:00 Room Air 06/10/19 20:00 79 06/10/19 20:00 97.7 74 16 104/79 (87) 95 06/10/19 16:00 78 06/10/19 16:00 98.1 89 18 119/69 (86) 98 06/10/19 12:00 97.7 79 19 119/78 (92) 97 06/10/19 12:00 71 06/10/19 10:59 Room Air Intake and Output 06/10/19 06/11/19 19:00 07:00 Intake Total 825 ml Output Total 700 ml 700 ml Balance 125 ml -700 ml Other 825 ml Output Urine Total 700 ml 700 ml # Bowel Movements 1 1 Laboratory Tests 06/11/19 05:21: White Blood Count 4.0L, Red Blood Count 3.57L, Hemoglobin 11.6L, Hematocrit 32.3L, Mean Corpuscular Volume 90, Mean Corpuscular Hemoglobin 32.4H, Mean Corpuscular Hemoglobin Concent 35.9, Red Cell Distribution Width 11.0L, Platelet Count 145L, Mean Platelet Volume 4.5L, Neutrophils (%) (Auto) 51.7, Lymphocytes (%) (Auto) 34.8, Monocytes (%) (Auto) 11.3H, Eosinophils (%) (Auto) 1.2, Basophils (%) (Auto) 1.1, Sodium Level 143, Potassium Level 3.5, Chloride Level 109H, Carbon Dioxide Level 25, Anion Gap 9, Blood Urea Nitrogen 9, Creatinine 0.8, Estimat Glomerular Filtration Rate > 60, Glucose Level 153H, Calcium Level 8.3L Height (Feet): 5 Height (Inches): 3.00 Weight (Pounds): 115 General Appearance: lethargic EENT: normal ENT inspection Neck: normal alignment Cardiovascular: normal peripheral pulses, normal rate, regular rhythm Respiratory/Chest: chest wall non-tender, lungs clear, normal breath sounds Abdomen: normal bowel sounds, non tender, soft Extremities: normal inspection Edema: no edema noted Arm (L), no edema noted Arm (R), no edema noted Leg (L), no edema noted Leg (R), no edema noted Pedal (L), no edema noted Pedal (R), no edema noted Generalized Neurologic: motor weakness Skin: normal pigmentation, warm/dry Kevin Velazco DO Jun 11, 2019 09:05
[2019-06-11] MEDS: Heparin 5000 units/ml inj SUBQ SCH ×2 (09:19→21:40)
--- NOTE | 2019-06-11 10:39 | NUR ---
RADIOLOGY DEPT., ABDOMEN X-RAY COMPLETED.-P.DYE
--- NOTE | 2019-06-11 11:36 | Diagnostic Imaging Report ---
EXAM: XR Abdomen, 2 Views CLINICAL HISTORY: ABD DIST TECHNIQUE: Frontal view of the abdomen/pelvis with upright view of the abdomen. COMPARISON: Abdominal radiograph on 06/09/2019 FINDINGS: Hardware: Interval removal of the enteric tube. Abdomen: Nonspecific bowel gas pattern with gas-filled stomach, colon, and small bowel. No free air. Decreased oral contrast in the left colon. Bones: Normal. Soft tissues: Normal. Lower chest: Normal. IMPRESSION: Nonspecific bowel gas pattern with gas-filled stomach, colon, and small bowel. Findings could represent ileus. No free air.
--- NOTE | 2019-06-11 11:41 | General Progress Note ---
Assessment/Plan Status: progressing Assessment/Plan: Assessment/Plan Problems: (1) Ileus ICD Codes: K56.7 - Ileus, unspecified SNOMED: 075348821 (2) Inguinal hernia ICD Codes: K40.90 - Unilateral inguinal hernia, without obstruction or gangrene , not specified as recurrent SNOMED: 625679037 Qualifiers: Qualified Codes: K40.30 - Unilateral inguinal hernia, with obstruction, without gangrene, not specified as recurrent (3) Chest pain ICD Codes: R07.9 - Chest pain, unspecified SNOMED: 95059857 Qualifiers: Qualified Codes: R07.9 - Chest pain, unspecified (4) Incarcerated right inguinal hernia ICD Codes: K40.30 - Unilateral inguinal hernia, with obstruction, without gangrene, not specified as recurrent SNOMED: 058761038 (5) SBO (small bowel obstruction) ICD Codes: K56.609 - Unspecified intestinal obstruction, unspecified as to partial versus complete obstruction SNOMED: 576417588 Status: progressing Assessment/Plan Small bowel follow-through reviewed, ileus KUB reviewed, functional in nature without any obvious obstruction Rectal tube present Await for ileus to resolve PT evaluation Encourage ambulation plus turn every 2 hours Advance diet per Surgery serial imaging prn Follow surgical recommendations Pain control Subjective Allergies: Coded Allergies: No Known Allergies (Unverified , 03/27/17) Subjective patient in chair family at bedside (+) flatus family asking about diet Objective Last 24 Hour Vital Signs Date Time Temp Pulse Resp B/P (MAP) Pulse Ox O2 Delivery O2 Flow Rate FiO2 06/11/19 09:00 Room Air 06/11/19 08:00 97.7 73 20 109/72 (84) 98 06/11/19 08:00 55 06/11/19 04:00 83 06/11/19 04:00 98.2 75 16 100/63 (75) 97 06/11/19 00:00 63 06/11/19 00:00 97.5 72 16 125/74 (91) 96 06/10/19 21:00 Room Air 06/10/19 20:00 79 06/10/19 20:00 97.7 74 16 104/79 (87) 95 06/10/19 16:00 78 06/10/19 16:00 98.1 89 18 119/69 (86) 98 06/10/19 12:00 97.7 79 19 119/78 (92) 97 06/10/19 12:00 71 Intake and Output 06/10/19 06/11/19 19:00 07:00 Intake Total 825 ml Output Total 700 ml 700 ml Balance 125 ml -700 ml Other 825 ml Output Urine Total 700 ml 700 ml # Bowel Movements 1 1 Laboratory Tests 06/11/19 05:21: White Blood Count 4.0L, Red Blood Count 3.57L, Hemoglobin 11.6L, Hematocrit 32.3L, Mean Corpuscular Volume 90, Mean Corpuscular Hemoglobin 32.4H, Mean Corpuscular Hemoglobin Concent 35.9, Red Cell Distribution Width 11.0L, Platelet Count 145L, Mean Platelet Volume 4.5L, Neutrophils (%) (Auto) 51.7, Lymphocytes (%) (Auto) 34.8, Monocytes (%) (Auto) 11.3H, Eosinophils (%) (Auto) 1.2, Basophils (%) (Auto) 1.1, Sodium Level 143, Potassium Level 3.5, Chloride Level 109H, Carbon Dioxide Level 25, Anion Gap 9, Blood Urea Nitrogen 9, Creatinine 0.8, Estimat Glomerular Filtration Rate > 60, Glucose Level 153H, Calcium Level 8.3L Height (Feet): 5 Height (Inches): 3.00 Weight (Pounds): 115 Objective patient seen in his chair NCAT supple CTA RR abd soft, ND no edema Kwabena Crisostomo MD Jun 11, 2019 11:41
[2019-06-11 12:00] VITALS: BP 127/83
--- NOTE | 2019-06-11 12:22 | Cardiac Electrophysiology PN ---
Assessment/Plan Assessment/Plan 1. Epigastric pain due to the small bowel obstruction. Troponins are negative. EKG does not show any acute ischemic changes. Echo Nl EF 2. Sinus Tachycardia with no evidence of atrial fibrillation. 3. Small bowel obstruction. Still no BM. Further evaluation by Dr. Freedman and Dr. Krishnamurthy. 4. Inguinal hernia. 5. Down Syndrome DW sister and RN at bedside Subjective Subjective Alert in NAD.Sitting in chair. Sister at bedside. Still no BM. Objective Last 24 Hour Vital Signs Date Time Temp Pulse Resp B/P (MAP) Pulse Ox O2 Delivery O2 Flow Rate FiO2 06/11/19 09:00 Room Air 06/11/19 08:00 97.7 73 20 109/72 (84) 98 06/11/19 08:00 55 06/11/19 04:00 83 06/11/19 04:00 98.2 75 16 100/63 (75) 97 06/11/19 00:00 63 06/11/19 00:00 97.5 72 16 125/74 (91) 96 06/10/19 21:00 Room Air 06/10/19 20:00 79 06/10/19 20:00 97.7 74 16 104/79 (87) 95 06/10/19 16:00 78 06/10/19 16:00 98.1 89 18 119/69 (86) 98 Intake and Output 06/10/19 06/11/19 19:00 07:00 Intake Total 825 ml Output Total 700 ml 700 ml Balance 125 ml -700 ml Other 825 ml Output Urine Total 700 ml 700 ml # Bowel Movements 1 1 Laboratory Tests Test 06/11/19 05:21 White Blood Count 4.0 K/UL (4.8-10.8) L Red Blood Count 3.57 M/UL (4.70-6.10) L Hemoglobin 11.6 G/DL (14.2-18.0) L Hematocrit 32.3 % (42.0-52.0) L Mean Corpuscular Volume 90 FL (80-99) Mean Corpuscular Hemoglobin 32.4 PG (27.0-31.0) H Mean Corpuscular Hemoglobin Concent 35.9 G/DL (32.0-36.0) Red Cell Distribution Width 11.0 % (11.6-14.8) L Platelet Count 145 K/UL (150-450) L Mean Platelet Volume 4.5 FL (6.5-10.1) L Neutrophils (%) (Auto) 51.7 % (45.0-75.0) Lymphocytes (%) (Auto) 34.8 % (20.0-45.0) Monocytes (%) (Auto) 11.3 % (1.0-10.0) H Eosinophils (%) (Auto) 1.2 % (0.0-3.0) Basophils (%) (Auto) 1.1 % (0.0-2.0) Sodium Level 143 MMOL/L (136-145) Potassium Level 3.5 MMOL/L (3.5-5.1) Chloride Level 109 MMOL/L (98-107) H Carbon Dioxide Level 25 MMOL/L (21-32) Anion Gap 9 mmol/L (5-15) Blood Urea Nitrogen 9 mg/dL (7-18) Creatinine 0.8 MG/DL (0.55-1.30) Estimat Glomerular Filtration Rate > 60 mL/min (>60) Glucose Level 153 MG/DL (74-106) H Calcium Level 8.3 MG/DL (8.5-10.1) L Objective HEAD AND NECK: No JVD. LUNGS: Clear. CARDIOVASCULAR: Regular S1 and S2 with no gallop. ABDOMEN: Soft EXTREMITIES: No pitting edema. Carlos Alberto Blanchard MD Jun 11, 2019 12:22
--- NOTE | 2019-06-11 13:10 | Surgery Progress Note ---
Surgery Progress Note Subjective Symptoms: improved Objective Last 24 Hour Vital Signs Date Time Temp Pulse Resp B/P (MAP) Pulse Ox O2 Delivery O2 Flow Rate FiO2 06/11/19 09:00 Room Air 06/11/19 08:00 97.7 73 20 109/72 (84) 98 06/11/19 08:00 55 06/11/19 04:00 83 06/11/19 04:00 98.2 75 16 100/63 (75) 97 06/11/19 00:00 63 06/11/19 00:00 97.5 72 16 125/74 (91) 96 06/10/19 21:00 Room Air 06/10/19 20:00 79 06/10/19 20:00 97.7 74 16 104/79 (87) 95 06/10/19 16:00 78 06/10/19 16:00 98.1 89 18 119/69 (86) 98 I&O Intake and Output 06/10/19 06/11/19 19:00 07:00 Intake Total 825 ml Output Total 700 ml 700 ml Balance 125 ml -700 ml Other 825 ml Output Urine Total 700 ml 700 ml # Bowel Movements 1 1 Cardiovascular: RSR Respiratory: clear Abdomen: soft, non-tender, present bowel sounds, non-distended Extremities: no edema, no tenderness, no cyanosis Laboratory Tests Test 06/11/19 05:21 White Blood Count 4.0 K/UL (4.8-10.8) L Red Blood Count 3.57 M/UL (4.70-6.10) L Hemoglobin 11.6 G/DL (14.2-18.0) L Hematocrit 32.3 % (42.0-52.0) L Mean Corpuscular Volume 90 FL (80-99) Mean Corpuscular Hemoglobin 32.4 PG (27.0-31.0) H Mean Corpuscular Hemoglobin Concent 35.9 G/DL (32.0-36.0) Red Cell Distribution Width 11.0 % (11.6-14.8) L Platelet Count 145 K/UL (150-450) L Mean Platelet Volume 4.5 FL (6.5-10.1) L Neutrophils (%) (Auto) 51.7 % (45.0-75.0) Lymphocytes (%) (Auto) 34.8 % (20.0-45.0) Monocytes (%) (Auto) 11.3 % (1.0-10.0) H Eosinophils (%) (Auto) 1.2 % (0.0-3.0) Basophils (%) (Auto) 1.1 % (0.0-2.0) Sodium Level 143 MMOL/L (136-145) Potassium Level 3.5 MMOL/L (3.5-5.1) Chloride Level 109 MMOL/L (98-107) H Carbon Dioxide Level 25 MMOL/L (21-32) Anion Gap 9 mmol/L (5-15) Blood Urea Nitrogen 9 mg/dL (7-18) Creatinine 0.8 MG/DL (0.55-1.30) Estimat Glomerular Filtration Rate > 60 mL/min (>60) Glucose Level 153 MG/DL (74-106) H Calcium Level 8.3 MG/DL (8.5-10.1) L Plan Problems: (1) Inguinal hernia (2) SBO (small bowel obstruction) Assessment & Plan: Findings: Lack of enteric contrast limits assessment of the GI tract. There is an indirect right inguinal hernia which contains a single loop of small bowel, probably distal ileum. Most of the small bowel is dilated and fluid-filled except for right lower quadrant ileum which is most likely small bowel distal to the hernia. No small bowel wall thickening or pneumatosis. The appendix is normal. There is no evidence of colonic diverticulosis or diverticulitis. There is a rectal tube in place. No free or loculated intraperitoneal gas or fluid is evident. Stomach is distended with ingested material and gas. The duodenum is grossly unremarkable. The gallbladder is nondistended. There, pancreas, spleen, adrenals, kidneys are unremarkable. No retroperitoneal or mesenteric mass or adenopathy. The bladder is markedly distended. No renal or ureteral calculi, hydronephrosis, or hydroureter. The included lung bases are somewhat obscured by motion artifact, grossly unremarkable. The bones are unremarkable. Impression: Indirect right inguinal hernia containing a loop of distal ileum, resulting in small bowel obstruction Rectal tube in place Distended bladder (3) Chest pain (4) Incarcerated right inguinal hernia Assessment & Plan: 48 year old male with incarcerated right inguinal hernia. known history of RIH. plan for prior repair but did not. now incarcerated causing sbo. was reduced in ED by physician. no n/v/f/c diarrhea abd soft, distended, non tender, decreased bs labs noted imaging reviewed trial diet; advance as tolerated iv fluids serial exams KUB noted from this AM - resolved Small bowel series without obstruction d/c yin d/c rectal tube will follow with recs thank you Alan Freedman Jun 11, 2019 13:10
[2019-06-11 16:00] VITALS: BP 127/78
--- NOTE | 2019-06-11 19:30 | NUR ---
NURSE NOTES: Received patient from Janel RN. Patient in chair, at bedside, awake, alert and oriented x2. Family at bedside. Transferred to bed. On room air, no signs of respiratory distress. D51/2NS w/20MEQ KCL infusing at 50ml/hr. Bed in low position, locked, bed alarm on, call light within reach.
--- NOTE | 2019-06-11 19:41 | NUR ---
HAND-OFF: Report given to Vaughn/RN, Patient is in stable condition, Endorsed plan of care.
[2019-06-11 20:00] VITALS: BP 153/54
[2019-06-12] VITALS: BP 106/71
[2019-06-12 04:00] VITALS: BP 123/68
[2019-06-12] MEDS: NovoLOG Insulin Flexpen SUBQ SCH ×2 (05:38→12:21)
--- NOTE | 2019-06-12 06:09 | Consultation ---
History of Present Illness General Chief Complaint: Chest Pain Present Illness Allergies: Coded Allergies: No Known Allergies (Unverified , 03/27/17) Medication History Scheduled Bisacodyl* (Dulcolax*), 5 MG ORAL DAILY, (Reported) Levothyroxine Sodium* (Levothyroxine Sodium*), 75 MCG ORAL DAILY, (Reported) Metformin HCl (Metformin HCl ER), 500 MG PO BID, (Reported) Pantoprazole (Pantoprazole), 20 MG ORAL DAILY, (Reported) Quetiapine Fumarate (Seroquel), 25 MG ORAL DAILY, (Reported) Quetiapine Fumarate* (Seroquel*), 25 MG ORAL TWICE A DAY, (Reported) Miscellaneous Medications Cholecalciferol (Vitamin D3) (Vitamin D3), 1,000 UNIT PO, (Reported) Patient History Healthcare decision maker Resuscitation status Advanced Directive on File Physical Exam Last 24 Hour Vital Signs Date Time Temp Pulse Resp B/P (MAP) Pulse Ox O2 Delivery O2 Flow Rate FiO2 06/12/19 04:00 98.1 65 16 123/68 (86) 96 06/12/19 04:00 75 06/12/19 00:00 98.0 77 16 106/71 (83) 98 06/12/19 00:00 61 06/11/19 21:00 Room Air 06/11/19 20:00 57 06/11/19 20:00 99.1 75 16 153/54 (87) 97 06/11/19 16:00 97.8 84 20 127/78 (94) 98 06/11/19 16:00 75 06/11/19 12:00 90 06/11/19 12:00 97.7 75 20 127/83 (98) 98 06/11/19 09:00 Room Air 06/11/19 08:00 97.7 73 20 109/72 (84) 98 06/11/19 08:00 55 Intake and Output 06/11/19 06/12/19 19:00 07:00 # Bowel Movements 1 1 Height (Feet): 5 Height (Inches): 3.00 Weight (Pounds): 115 Medications Current Medications Medications (Trade) Dose Ordered Sig/[place] Route PRN Reason Start Time Stop Time Status Last Admin Dose Admin Acetaminophen (Tylenol) 650 mg Q4H PRN ORAL fever 06/07/19 17:00 07/07/19 16:59 06/07/19 18:45 Al Hydroxide/Mg Hydroxide (Mylanta II) 30 ml Q6H PRN ORAL dyspepsia 06/07/19 17:00 07/07/19 16:59 Dextrose (Dextrose 50%) 25 ml Q30M PRN IV Hypoglycemia 06/07/19 17:00 07/07/19 16:59 Dextrose (Dextrose 50%) 50 ml Q30M PRN IV Hypoglycemia 06/07/19 17:00 07/07/19 16:59 Dextrose/ Electrolytes 1,000 ml @ 50 mls/hr Q20H IV 06/11/19 13:12 07/11/19 13:11 06/11/19 17:03 Diphenhydramine HCl (Benadryl) 25 mg Q6H PRN ORAL Itching/Pruritis 06/07/19 17:00 07/07/19 16:59 Famotidine (Pepcid I.v.) 20 mg Q12HR IVP 06/07/19 21:00 07/07/19 20:59 06/11/19 21:37 Heparin Sodium (Porcine) (Heparin 5000 units/ml) 5,000 units EVERY 12 HOURS SUBQ 06/07/19 21:00 07/07/19 20:59 06/11/19 21:40 Insulin Aspart (NovoLOG) BEFORE MEALS AND HS SUBQ 06/07/19 21:00 07/07/19 20:59 06/11/19 17:04 Lorazepam (Ativan 2mg/ml 1ml) 0.5 mg Q4H PRN IV For Anxiety 06/07/19 17:00 06/14/19 16:59 06/11/19 02:58 Morphine Sulfate (Morphine Sulfate) 2 mg Q4H PRN IVP Moderate Pain (Pain Scale 4-6) 06/07/19 17:00 06/14/19 16:59 Ondansetron HCl (Zofran) 4 mg Q6H PRN IVP Nausea & Vomiting 06/07/19 17:00 07/07/19 16:59 Assessment/Plan Assessment/Plan: Hematology Consultation REElaine XIONG: Kevin Velazco RFC: Pancytopenia DOS: 06/12/2019 ID 48-year-old male presents with vague complaints of chest pain, abdominal pain, started a few hours prior to arrival, he is not able to verbalize what exactly is going on he has a history of developmental delay, unknown aggravating relieving factors unknown severity unknown radiation he points to his chest as well as his abdomen patient presents for evaluation Was agitated yesterday and in the pm, given ativan and noted to have panctyopenia, imaging has been reviewed, other field technical support consultant recs are noted as well. Allergies: No Known Allergies (Unverified , 03/27/17) Patient History Past Medical History: see triage record Reviewed Nursing Documentation: PMH: Agreed; PSxH: Agreed Nursing Documentation-PMH Past Medical History: No History, Except For Hx Diabetes: Yes History Of Psychiatric Problem: Yes - mentally delayed Review of Systems All Other Systems: negative except mentioned in HPI Physical Exam Vitals: reviewed General: well appearing, no apparent distress HEENT: supple, thyroid normal Respiratory: lungs clear, no respiratory distress CV: rrr, no mgr Gastrointestinal: distended, tenderness - diffuse tenderness Psychiatric: mood/affect normal Labs: noted Imaging: noted Assessment and Recs: # Pancytopenia may be reactive to infection/ileus v medications that he is taking, r/o liver disease at this time --> at this time, order for peripheral smear --> hepatitis and hiv viral studies have been ordered --> anemia panel as needed, though h/h appears stable --> us of the abdomen to better gen liver for nodularity --> ANC goal >1500 # Chest pain --> r/o acs --> trop and furthere eval per Dr. Blanchard # Hypotension --> initially required resuscitation with 3 L, decompression wi --> now improved # Inguinal hernia --> imaging and w/u per Dr. Freedman # SBO (small bowel obstruction) --> per gi has improved # Downs syndrome Appreciate consultation and dw Rn Marcos Garcia MD Jun 12, 2019 06:09
--- NOTE | 2019-06-12 07:19 | NUR ---
NURSE NOTES: Received report from Vaughn/RN, Patient is asleep, lying semi-hays's, resting comfortably. On room air, no acute distress/SOB noted. IV on right FA patent, no infiltration or bleeding noted, D5 1/2 NS with 20 mEq running at 50cc/hr. Bed in low position and locked, Call light within reach. Will continue plan of care.
[2019-06-12 08:00] VITALS: BP 122/56
[2019-06-12 08:03] LABS: BASOPHILS % (AUTO) 0.9 % (0.0-2.0); EOSINOPHILS % (AUTO) 2.2 % (0.0-3.0); HEMOGLOBIN 12.1 G/DL (14.2-18.0); LYMPHOCYTES % (AUTO) 50.6 % (20.0-45.0); MEAN CORPUSCULAR VOLUME 90 FL (80-99); MONOCYTES % (AUTO) 11.3 % (1.0-10.0); PLATELET COUNT 145 K/UL (150-450); RED BLOOD COUNT 3.66 M/UL (4.70-6.10); WHITE BLOOD COUNT 3.9 K/UL (4.8-10.8)
--- NOTE | 2019-06-12 08:16 | General Progress Note ---
Assessment/Plan Problem List: (1) Inguinal hernia ICD Codes: K40.90 - Unilateral inguinal hernia, without obstruction or gangrene , not specified as recurrent SNOMED: 884037199 Qualifiers: Qualified Codes: K40.30 - Unilateral inguinal hernia, with obstruction, without gangrene, not specified as recurrent (2) Chest pain ICD Codes: R07.9 - Chest pain, unspecified SNOMED: 89677998 Qualifiers: Qualified Codes: R07.9 - Chest pain, unspecified (3) Incarcerated right inguinal hernia ICD Codes: K40.30 - Unilateral inguinal hernia, with obstruction, without gangrene, not specified as recurrent SNOMED: 537788652 (4) SBO (small bowel obstruction) ICD Codes: K56.609 - Unspecified intestinal obstruction, unspecified as to partial versus complete obstruction SNOMED: 971887492 (5) Ileus ICD Codes: K56.7 - Ileus, unspecified SNOMED: 963021691 (6) Pancytopenia ICD Codes: D61.818 - Other pancytopenia SNOMED: 399766500 Status: stable, progressing Assessment/Plan: npo ivf diet per gi sx f/u heme eval cbc bmp am Subjective Constitutional: Reports: weakness Allergies: Coded Allergies: No Known Allergies (Unverified , 03/27/17) All Systems: reviewed and negative except above Subjective sleepy calm Objective Last 24 Hour Vital Signs Date Time Temp Pulse Resp B/P (MAP) Pulse Ox O2 Delivery O2 Flow Rate FiO2 06/12/19 04:00 98.1 65 16 123/68 (86) 96 06/12/19 04:00 75 06/12/19 00:00 98.0 77 16 106/71 (83) 98 06/12/19 00:00 61 06/11/19 21:00 Room Air 06/11/19 20:00 57 06/11/19 20:00 99.1 75 16 153/54 (87) 97 06/11/19 16:00 97.8 84 20 127/78 (94) 98 06/11/19 16:00 75 06/11/19 12:00 90 06/11/19 12:00 97.7 75 20 127/83 (98) 98 06/11/19 09:00 Room Air Intake and Output 2/1/20 2/2/20 19:00 07:00 # Voids 2 # Bowel Movements 1 1 Laboratory Tests 06/12/19 05:50: White Blood Count [Pending], Red Blood Count [Pending], Hemoglobin [Pending], Hematocrit [Pending], Mean Corpuscular Volume [Pending], Mean Corpuscular Hemoglobin [Pending], Mean Corpuscular Hemoglobin Concent [Pending], Red Cell Distribution Width [Pending], Platelet Count [Pending], Mean Platelet Volume [ Pending], Neutrophils (%) (Auto) [Pending], Lymphocytes (%) (Auto) [Pending], Monocytes (%) (Auto) [Pending], Eosinophils (%) (Auto) [Pending], Basophils (%) (Auto) [Pending], Sodium Level [Pending], Potassium Level [Pending], Chloride Level [Pending], Carbon Dioxide Level [Pending], Blood Urea Nitrogen [Pending], Creatinine [Pending], Estimat Glomerular Filtration Rate [Pending], Glucose Level [Pending], Calcium Level [Pending], HIV (1&2) Antibody Rapid [Pending] Height (Feet): 5 Height (Inches): 3.00 Weight (Pounds): 115 General Appearance: lethargic, confused EENT: normal ENT inspection Neck: normal alignment Cardiovascular: normal peripheral pulses, normal rate, regular rhythm Respiratory/Chest: chest wall non-tender, lungs clear, normal breath sounds Abdomen: normal bowel sounds, non tender, soft Extremities: normal inspection Edema: no edema noted Arm (L), no edema noted Arm (R), no edema noted Leg (L), no edema noted Leg (R), no edema noted Pedal (L), no edema noted Pedal (R), no edema noted Generalized Neurologic: motor weakness Skin: normal pigmentation, warm/dry Kevin Velazco DO Jun 12, 2019 08:16
[2019-06-12] MEDS: Heparin 5000 units/ml inj SUBQ SCH (08:38)
[2019-06-12 08:52] LABS: ANION GAP 7 mmol/L (5-15); BLOOD UREA NITROGEN 7 mg/dL (7-18); CALCIUM 8.3 MG/DL (8.5-10.1); CARBON DIOXIDE 27 MMOL/L (21-32); CHLORIDE 109 MMOL/L (98-107); CREATININE 0.8 MG/DL (0.55-1.30); POTASSIUM 3.6 MMOL/L (3.5-5.1); SODIUM 143 MMOL/L (136-145)
[2019-06-12] MEDS: D5 1/2NS w/KCl 20mEq 1,000 ML IV SCH (08:57)
--- NOTE | 2019-06-12 11:12 | Surgery Progress Note ---
Surgery Progress Note Subjective Symptoms: improved, pain absent, tolerating diet, voiding well, passing flatus Objective Last 24 Hour Vital Signs Date Time Temp Pulse Resp B/P (MAP) Pulse Ox O2 Delivery O2 Flow Rate FiO2 06/12/19 04:00 98.1 65 16 123/68 (86) 96 06/12/19 04:00 75 06/12/19 00:00 98.0 77 16 106/71 (83) 98 06/12/19 00:00 61 06/11/19 21:00 Room Air 06/11/19 20:00 57 06/11/19 20:00 99.1 75 16 153/54 (87) 97 06/11/19 16:00 97.8 84 20 127/78 (94) 98 06/11/19 16:00 75 06/11/19 12:00 90 06/11/19 12:00 97.7 75 20 127/83 (98) 98 I&O Intake and Output 06/11/19 06/12/19 19:00 07:00 # Voids 2 # Bowel Movements 1 1 Cardiovascular: RSR Respiratory: clear Abdomen: soft, flat, non-tender, present bowel sounds Extremities: no edema, no tenderness, no cyanosis Laboratory Tests Test 06/12/19 05:00 06/12/19 05:50 Hepatitis A IgM Antibody Pending Hepatitis B Surface Antigen Pending Hepatitis B Core IgM Antibody Pending Hepatitis C Antibody Pending White Blood Count 3.9 K/UL (4.8-10.8) L Red Blood Count 3.66 M/UL (4.70-6.10) L Hemoglobin 12.1 G/DL (14.2-18.0) L Hematocrit 33.0 % (42.0-52.0) L Mean Corpuscular Volume 90 FL (80-99) Mean Corpuscular Hemoglobin 33.0 PG (27.0-31.0) H Mean Corpuscular Hemoglobin Concent 36.6 G/DL (32.0-36.0) H Red Cell Distribution Width 11.0 % (11.6-14.8) L Platelet Count 145 K/UL (150-450) L Mean Platelet Volume 4.6 FL (6.5-10.1) L Neutrophils (%) (Auto) 35.0 % (45.0-75.0) L Lymphocytes (%) (Auto) 50.6 % (20.0-45.0) H Monocytes (%) (Auto) 11.3 % (1.0-10.0) H Eosinophils (%) (Auto) 2.2 % (0.0-3.0) Basophils (%) (Auto) 0.9 % (0.0-2.0) Sodium Level 143 MMOL/L (136-145) Potassium Level 3.6 MMOL/L (3.5-5.1) Chloride Level 109 MMOL/L (98-107) H Carbon Dioxide Level 27 MMOL/L (21-32) Anion Gap 7 mmol/L (5-15) Blood Urea Nitrogen 7 mg/dL (7-18) Creatinine 0.8 MG/DL (0.55-1.30) Estimat Glomerular Filtration Rate > 60 mL/min (>60) Glucose Level 121 MG/DL (74-106) H Calcium Level 8.3 MG/DL (8.5-10.1) L HIV (1&2) Antibody Rapid Negative (NEGATIVE) Plan Problems: (1) Inguinal hernia (2) SBO (small bowel obstruction) Assessment & Plan: Findings: Lack of enteric contrast limits assessment of the GI tract. There is an indirect right inguinal hernia which contains a single loop of small bowel, probably distal ileum. Most of the small bowel is dilated and fluid-filled except for right lower quadrant ileum which is most likely small bowel distal to the hernia. No small bowel wall thickening or pneumatosis. The appendix is normal. There is no evidence of colonic diverticulosis or diverticulitis. There is a rectal tube in place. No free or loculated intraperitoneal gas or fluid is evident. Stomach is distended with ingested material and gas. The duodenum is grossly unremarkable. The gallbladder is nondistended. There, pancreas, spleen, adrenals, kidneys are unremarkable. No retroperitoneal or mesenteric mass or adenopathy. The bladder is markedly distended. No renal or ureteral calculi, hydronephrosis, or hydroureter. The included lung bases are somewhat obscured by motion artifact, grossly unremarkable. The bones are unremarkable. Impression: Indirect right inguinal hernia containing a loop of distal ileum, resulting in small bowel obstruction Rectal tube in place Distended bladder (3) Chest pain (4) Incarcerated right inguinal hernia Assessment & Plan: 48 year old male with incarcerated right inguinal hernia. known history of RIH. plan for prior repair but did not. now incarcerated causing sbo. was reduced in ED by physician. no n/v/f/c diarrhea abd soft, distended, non tender, decreased bs labs noted imaging reviewed trial diet; advance as tolerated iv fluids serial exams okay to d/c outpatient follow up with pcp for elective hernia repair thank you will follow with recs thank you Alan Freedman Jun 12, 2019 11:12
[2019-06-12 12:00] VITALS: BP 124/60
--- NOTE | 2019-06-12 13:40 | NUR ---
NURSE NOTES: Discharge instruction given to Patient's sister, verbalized understanding. satellite project site monitor and IV removed, no distress or bleeding noted. Patient is in stable condition. Did not take picture, Patient has no wound, but fistula. All paper work signed by patient's sister. Family Requested medical release form, sister filled out and returned, it's in chart. Patient left with family member via private vehicle.
--- NOTE | 2019-06-12 14:56 | General Progress Note ---
Assessment/Plan Status: stable, progressing Assessment/Plan: Assessment/Plan Problems: (1) Ileus ICD Codes: K56.7 - Ileus, unspecified SNOMED: 550015738 (2) Inguinal hernia ICD Codes: K40.90 - Unilateral inguinal hernia, without obstruction or gangrene , not specified as recurrent SNOMED: 036985058 Qualifiers: Qualified Codes: K40.30 - Unilateral inguinal hernia, with obstruction, without gangrene, not specified as recurrent (3) Chest pain ICD Codes: R07.9 - Chest pain, unspecified SNOMED: 66676122 Qualifiers: Qualified Codes: R07.9 - Chest pain, unspecified (4) Incarcerated right inguinal hernia ICD Codes: K40.30 - Unilateral inguinal hernia, with obstruction, without gangrene, not specified as recurrent SNOMED: 633016034 (5) SBO (small bowel obstruction) ICD Codes: K56.609 - Unspecified intestinal obstruction, unspecified as to partial versus complete obstruction SNOMED: 758594772 Status: progressing Assessment/Plan Small bowel follow-through reviewed, dulcolax trial KUB reviewed, functional in nature without any obvious obstruction PT evaluation Encourage ambulation plus turn every 2 hours serial imaging prn Follow surgical recommendations Pain control Subjective Allergies: Coded Allergies: No Known Allergies (Unverified , 03/27/17) Subjective patient in chair family at bedside tolerating PO Objective Last 24 Hour Vital Signs Date Time Temp Pulse Resp B/P (MAP) Pulse Ox O2 Delivery O2 Flow Rate FiO2 06/12/19 12:00 72 06/12/19 12:00 98.0 64 16 124/60 (81) 100 06/12/19 09:00 Room Air 06/12/19 08:00 98.1 63 20 122/56 (78) 100 06/12/19 08:00 70 06/12/19 04:00 98.1 65 16 123/68 (86) 96 06/12/19 04:00 75 06/12/19 00:00 98.0 77 16 106/71 (83) 98 06/12/19 00:00 61 06/11/19 21:00 Room Air 06/11/19 20:00 57 06/11/19 20:00 99.1 75 16 153/54 (87) 97 06/11/19 16:00 97.8 84 20 127/78 (94) 98 06/11/19 16:00 75 Intake and Output 06/11/19 06/12/19 19:00 07:00 # Voids 2 # Bowel Movements 1 1 Laboratory Tests 06/12/19 05:00: Hepatitis A IgM Antibody [Pending], Hepatitis B Surface Antigen [Pending], Hepatitis B Core IgM Antibody [Pending], Hepatitis C Antibody [Pending] 06/12/19 05:50: White Blood Count 3.9L, Red Blood Count 3.66L, Hemoglobin 12.1L, Hematocrit 33.0L, Mean Corpuscular Volume 90, Mean Corpuscular Hemoglobin 33.0H, Mean Corpuscular Hemoglobin Concent 36.6H, Red Cell Distribution Width 11.0L, Platelet Count 145L, Mean Platelet Volume 4.6L, Neutrophils (%) (Auto) 35.0L, Lymphocytes (%) (Auto) 50.6H, Monocytes (%) (Auto) 11.3H, Eosinophils (%) (Auto ) 2.2, Basophils (%) (Auto) 0.9, Sodium Level 143, Potassium Level 3.6, Chloride Level 109H, Carbon Dioxide Level 27, Anion Gap 7, Blood Urea Nitrogen 7 , Creatinine 0.8, Estimat Glomerular Filtration Rate > 60, Glucose Level 121H, Calcium Level 8.3L, HIV (1&2) Antibody Rapid Negative Height (Feet): 5 Height (Inches): 3.00 Weight (Pounds): 115 Objective patient seen in his chair NCAT supple CTA RR abd soft, ND no edema Kwabena Crisostomo MD Jun 12, 2019 14:56
--- NOTE | 2019-06-13 10:43 | NUR ---
*-* INSURANCE *-* DISCHARGE SUMMARY HAS BEEN FAXED TO: JENNIFER ADAMS: [employer] ref#[id number] Addendum: 06/13/19 at 1045 by RITCHIE FRAIRE CM NO DISCHARGE SUMMARY IN THE SYSTEM
--- NOTE | 2019-06-13 11:25 | Discharge Summary ---
Discharge Summary Discharge Summary _ DATE OF ADMISSION: 06/07/2019 DATE OF DISCHARGE: 06/12/2019 DISCHARGED BY: Dr Velazco REASON FOR ADMISSION: 48 years old male with past medical history of diabetes mellitus, hypothyroidism , chronic hepatitis B, developmental delay, presented with vague complaints of chest and abdominal pain. Patient with a history of developmental delay and unable to provide reliable history. Upon evaluation patient was tachycardic with a heart rate 126 , blood pressure was stable , pulse oximetry was stable on room air. Laboratory work-up revealed no leukocytosis , stable hemoglobin , hematocrit and platelet count. Stable electrolytes . BUN 24, creatinine 1.0. Glucose 211. Stable LFT. Troponin negative. EKG revealed sinus tachycardia, no acute ischemic changes . Pro BNP 96. Lipase 131. Chest x-ray demonstrated marked gaseous distention of the stomach , mild interstitial congestion and hazy parenchymal opacity. CT of the abdomen and pelvis revealed indirect right inguinal hernia , containing a loop of distal ileum , resulting in small bowel obstruction. Distended bladder. Patient admitted for chest pain , small bowel obstruction and indirect inguinal hernia for further management. CONSULTANTS: control systems developer Dr. Pérez GI specialist Dr. Krishnamurthy kitchen operator/oncologist Dr. Garcia surgery [facility] COURSE: Patient admitted to telemetry floor. Patient was kept n.p.o. and started on the IV fluids . Surgeon followed. Patient was followed-up with abdominal x-ray . Abdominal x-ray on revealed increased gaseous distention of small bowels, likely ongoing small bowel obstruction given the findings of prior CT scan. Small bowel follow-through series showed contrast reaching the colon by 2 hours, indicating absence of small bowel obstruction. Mild proximal dilatation of the small bowel revealed to be functional in nature on the basis of the ileus changes. Patient had known history of right indirect hernia with prior plan for repair . However , hernia never was repaired, and at this time became incarcerated , causing small bowel obstruction. It was reduced by emergency room physician. Clinical exam demonstrated distended but nontender abdomen. Bowel sounds present, but initially were decreased . Small bowel series showed no obstruction. Patient was monitored for return of bowel function/resolution of ileus. Bowel regimen instituted as per GI specialist recommendation. Patient was followed -up with a serial KUB. Pain management was addressed as needed . Patient was working with physical therapist. Ambulation was encouraged along with turning every 2 hours. As bowel function returned, patient slowly started on diet and was advanced as tolerated. Patient was able to tolerate diet. Greige Goods Marker followed for complaint of the chest pain. Serial troponin were negative. EKG revealed no acute ischemic changes . Echocardiogram revealed preserved ejection fraction. Patient was ruled out for acute myocardial infarction. Chest pain was likely epigastric pain , due to small bowel obstruction. Patient did have sinus tachycardia initially, possibly due to dehydration . No evidence of atrial fibrillation. Tocharian eventually resolved. Counts were closely monitored. Patient had pancytopenia , possibly reactive due to infection/ileus versus medication. Prior to discharge WBC 3.9 ,hemoglobin 12.1, and platelet count 145. Associate Relations Specialist recommended monitor counts as outpatient. DVT and GI prophylaxis provided. Blood sugar was managed with sliding scale of insulin. Patient had bowel movement. Surgeon cleared patient for discharge. Surgeon recommended outpatient follow-up with a primary care provider for defect elective hernia repair. Patient subsequently was discharged home. FINAL DIAGNOSES: Incarcerated right inguinal hernia Small bowel obstruction-resolved Ileus Epigastric pain , secondary to small bowel obstruction-resolved DISCHARGE MEDICATIONS: See Medication Reconciliation list. DISCHARGE INSTRUCTIONS: Patient was discharged home. Follow-up with a primary care provider in 1 week. Patient will need need to schedule outpatient elective repair of right inguinal hernia. I have been assigned to dictate discharge summary for this account. I was not involved in the patient's management. Eva Lopez NP Jun 13, 2019 11:25
== END 2019-06-12 13:40 | disposition home or self-care (01) | DRG 394 ==
LOC: EDBD 10:25 → EMR 10:35 → 2E 15:31 → EDBEDREQ 16:49
DX: K40.30 Unilateral inguinal hernia, with obstruction, without gangrene, not specified as recurrent (principal); E46 Unspecified protein-calorie malnutrition; B18.1 Chronic viral hepatitis B without delta-agent; K56.7 Ileus, unspecified; D61.818 Other pancytopenia; Q90.9 Down syndrome, unspecified; F79 Unspecified intellectual disabilities; E11.9 Type 2 diabetes mellitus without complications; R00.0 Tachycardia, unspecified; E03.9 Hypothyroidism, unspecified; E86.0 Dehydration; Z79.84 Long term (current) use of oral hypoglycemic drugs
CPT/HCPCS: 36415; 71045; 74018; 74177; 74250; 80048; 80053; 80061; 81003; 82150; 82962; 83036; 83605; 83690; 83880; 84443; 84484; 85025; 85610; 85651; 85730; 86140; 86703; 86705; 86709; 86803; 87081; 87324; 87340; 93005; 93306; 96361; 96374; 99291; J1815; J7030